=== PATIENT | female | born 1935 | race Caucasian/White ===

== ENCOUNTER 2022-05-12 12:44 | Outpatient (CLI) | payer MEDICARE | END 2022-05-12 12:45 | disposition home or self-care (01) | LOC: BICMAMMO 12:44 | PROVIDERS: ATTEND Family Medicine | DX: Z12.31 Encounter for screening mammogram for malignant neoplasm of breast (principal); Z80.3 Family history of malignant neoplasm of breast; Z91.89 Other specified personal risk factors, not elsewhere classified | CPT/HCPCS: 77063; 77067 ==

== ENCOUNTER 2022-10-25 14:09 | Inpatient (IN) | payer MEDICARE ==
[~2022-10-25 14:09] MED LIST: Iopamidol-370 76% 500 ML 1 ML ONE; Magnevist 469MG/ML 20 ML VIAL ONE
[2022-10-25] MEDS ORDERED: Ondansetron PF 4 MG/2 ML Vial IVP PRN (14:45)
[2022-10-25] MEDS ORDERED: Senokot S 8.6-50 MG TAB PO PRN (14:45)
[2022-10-25 14:46] VITALS: BMI 30.4
[2022-10-25] MEDS: HYDROcodone/Acetaminophen 5/325 mg Tablet PO PRN ×2 (15:11→19:50)
[2022-10-25] MEDS: Nicotine 21 MG PATCH TD SCH (15:11)
[2022-10-25 15:37] LABS: SARS-CoV-2 NAA Rapid Test Not Detected (NotDetected)
[2022-10-25 16:30] LABS: #Eosinphils 0.1 thou/uL (0.0-0.7); #Lymphocytes 1.3 thou/uL (1.20-3.40); #Neutrophils 9.6 thou/uL (1.40-6.50); %Basophils 0.3 % (0.0-1.0); %Eosinophils 0.9 % (0.0-10.0); %Lymphocytes 10.8 % (21.0-51.0); %Monocytes 8.5 % (0.0-10.0); %Neutrophils 79.5 % (42.0-75.0); Hemoglobin 10.4 g/dL (12.0-16.0); Mean Corpuscular HGB CONC 32.2 g/dL (32.0-36.0); Mean Corpuscular Hemoglobin 28.3 pg (27.0-31.0); Mean Corpuscular Volume 87.8 fl (78.0-98.0); Mean Platelet Volume 5.8 fL (7.4-10.4); Platelet Count 375 10x3/uL (130-400); Red Blood Cell (RBC) Count 3.68 mill/uL (4.20-5.40); White Blood Cell (WBC) Count 12.1 10x3/uL (4.8-10.8)
[2022-10-25 16:50] LABS: ALT (SGPT) Less than 7 U/L (8-55); AST (SGOT) 14 U/L (5-34); Albumin 3.3 g/dL (3.4-4.8); Alkaline Phosphatase 69 U/L (40-110); Anion Gap 12 mmol/L (10-20); BUN (Urea Nitrogen) 21 mg/dL (9.8-20.1); Bilirubin, Total 0.4 mg/dL (0.2-1.2); Calc. Creatinine Clearance 44 mL/min (70-130); Calcium 9.5 mg/dL (7.8-10.44); Carbon Dioxide 27 mmol/L (23-31); Chloride 96 mmol/L (98-107); Estimated GFR 48; Globulin 2.9 g/dL (2.4-3.5); Glucose 111 mg/dL (83-110); Protein, Total 6.2 g/dL (5.8-8.1); Sodium 131 mmol/L (136-145)
[2022-10-25] MEDS: Ketorolac Tromethamine 30 MG/ML VIAL IVP PRN (17:09)
[2022-10-25] MEDS: Rosuvastatin 5 MG TAB PO SCH (19:49)
[2022-10-26] MEDS: Levothyroxine Sodium 75 MCG TAB PO SCH (05:07)
[2022-10-26] MEDS: HYDROcodone/Acetaminophen 5/325 mg Tablet PO PRN ×3 (06:22→19:39)
[2022-10-26] MEDS ORDERED: oxyCODONE/Acetaminophen 5 mg/325 mg Tablet PO PRN (09:30)
[2022-10-26] MEDS: Escitalopram Oxalate 10 mg Tablet PO SCH (11:12)
[2022-10-26] MEDS: Losartan 25 MG TAB PO SCH (11:13)
[2022-10-26] MEDS ORDERED: CEFAZOLIN 2 GM in Sodium Chloride 0.9% 100 ML IVPB SCH (15:45)
[2022-10-26] MEDS: Ketorolac Tromethamine 30 MG/ML VIAL IVP PRN (18:02)
[2022-10-26] MEDS: Nicotine 21 MG PATCH TD SCH (18:04)
[2022-10-26] MEDS: Rosuvastatin 5 MG TAB PO SCH (19:39)
[2022-10-26] MEDS: Calcium Carbonate 600 MG + Vit D TAB PO SCH (19:39)
[2022-10-27] MEDS: HYDROcodone/Acetaminophen 5/325 mg Tablet PO PRN ×2 (05:00→16:15)
[2022-10-27] MEDS: Levothyroxine Sodium 75 MCG TAB PO SCH (05:00)
[2022-10-27 05:11] LABS: #Eosinphils 0.1 thou/uL (0.0-0.7); #Lymphocytes 1.4 thou/uL (1.20-3.40); #Monocytes 1.1 thou/uL (0.11-0.59); #Neutrophils 8.7 thou/uL (1.40-6.50); %Basophils 0.2 % (0.0-1.0); %Eosinophils 1.1 % (0.0-10.0); %Lymphocytes 12.4 % (21.0-51.0); %Monocytes 9.3 % (0.0-10.0); Hemoglobin 10.5 g/dL (12.0-16.0); Mean Corpuscular HGB CONC 32.4 g/dL (32.0-36.0); Mean Corpuscular Hemoglobin 28.4 pg (27.0-31.0); Mean Corpuscular Volume 87.6 fl (78.0-98.0); Mean Platelet Volume 5.9 fL (7.4-10.4); Platelet Count 350 10x3/uL (130-400); RBC Distribution Width 13.1 % (11.5-14.5); White Blood Cell (WBC) Count 11.3 10x3/uL (4.8-10.8)
[2022-10-27 05:29] LABS: Anion Gap 14 mmol/L (10-20); BUN (Urea Nitrogen) 26 mg/dL (9.8-20.1); Calc. Creatinine Clearance 41 mL/min (70-130); Carbon Dioxide 26 mmol/L (23-31); Chloride 93 mmol/L (98-107); Estimated GFR 45; Glucose 100 mg/dL (83-110); Potassium 4.5 mmol/L (3.5-5.1); Sodium 128 mmol/L (136-145)
[2022-10-27] MEDS ORDERED: Dexmedetomidine 200 MCG/2 ML VIAL ONE (08:45)
[2022-10-27] MEDS ORDERED: fentaNYL PF 100 MCG/2 ML SYRINGE ONE (08:45)
[2022-10-27] MEDS: Calcium Carbonate 600 MG + Vit D TAB PO SCH ×2 (08:50→21:09)
[2022-10-27] MEDS: Aspirin 81 mg Enteric Coated Tablet PO SCH (08:50)
[2022-10-27] MEDS: Multivit, Therapeutic 1 TAB PO SCH (08:50)
[2022-10-27] MEDS: Losartan 25 MG TAB PO SCH (08:50)
[2022-10-27] MEDS: Escitalopram Oxalate 10 mg Tablet PO SCH (08:50)
[2022-10-27] MEDS ORDERED: Bisoprolol Fumarate/HCTZ 5 mg/6.25 mg Tablet PO SCH (09:00)
[2022-10-27] MEDS ORDERED: Rocuronium Bromide 10 MG/ML (10ML VIAL) ONE (09:00)
[2022-10-27] MEDS ORDERED: Ondansetron PF 4 MG/2 ML Vial ONE (09:00)
[2022-10-27] MEDS ORDERED: ePHEDrine 50 MG/ML VIAL ONE (09:00)
[2022-10-27] MEDS ORDERED: PROPOFOL 200 MG/20 ML VIAL ONE (09:00)
[2022-10-27] MEDS ORDERED: Sodium Chloride 0.9% 100 ML ONE ×2 (09:04→15:04)
[2022-10-27] MEDS ORDERED: CEFAZOLIN 2 GM VIAL ONE (09:04)
[2022-10-27] MEDS ORDERED: SUGAMMADEX SODIUM 200 MG/2 ML VIAL ONE (10:54)
[2022-10-27] MEDS ORDERED: Rocuronium Bromide 50 MG/5 ML VIAL ONE (10:59)
[2022-10-27] MEDS ORDERED: Ondansetron HCl/PF 4 MG/2 ML Vial IVP PRN (11:20)
[2022-10-27] MEDS ORDERED: Promethazine HCl 25 MG/ML VIAL IM PRN (11:20)
[2022-10-27] MEDS ORDERED: Fentanyl 100 MCG/2 ML VIAL ONE ×2 (11:22→12:25)
[2022-10-27] MEDS ORDERED: Ipratropium/Albuterol 3 ML NEB ONE (12:58)
[2022-10-27] MEDS ORDERED: Albumin 5% 500 ML ONE (13:03)
[2022-10-27 13:39] LABS: Actual Bicarbonate (HCO3a) 22.8 mEq/L (22-28); CO2 Tension 38.9 mmHg (35.0-45.0); Calcium, Ionized (arterial) 1.23 mmol/L (1.12-1.30); Carboxyhemoglobin (COHb) 0.7 gm% (0.0-3.0); Hemoglobin (Hb) 10.8 g/dL (12.0-16.0); O2 Tension (PaO2), arterial 67.9 mmHg (> 60.0); Potassium - ABG Lab 4.11 mmol/L (3.70-5.30); pH, Arterial 7.39 (7.35-7.45)
[2022-10-27 14:26] LABS: Puncture Site RRA
[2022-10-27] MEDS ORDERED: Piperacillin/Tazobactam 3.375 GM in Sodium Chloride 0.9% 100 ML IVPB SCH ×2 (14:45→18:00)
[2022-10-27] MEDS ORDERED: Piperacillin/Tazobactam 3.375 GM VIAL ONE (15:04)
[2022-10-27] MEDS: Nicotine 21 MG PATCH TD SCH (16:16)
[2022-10-27 16:34] LABS: #Lymphocytes 0.4 thou/uL (1.20-3.40); #Monocytes 0.6 thou/uL (0.11-0.59); #Neutrophils 14.4 thou/uL (1.40-6.50); %Basophils 0.2 % (0.0-1.0); %Eosinophils 0.2 % (0.0-10.0); %Lymphocytes 2.3 % (21.0-51.0); %Monocytes 3.9 % (0.0-10.0); %Neutrophils 93.4 % (42.0-75.0); Hemoglobin 9.7 g/dL (12.0-16.0); Mean Corpuscular HGB CONC 32.4 g/dL (32.0-36.0); Mean Corpuscular Hemoglobin 28.3 pg (27.0-31.0); Mean Corpuscular Volume 87.6 fl (78.0-98.0); Mean Platelet Volume 6.1 fL (7.4-10.4); Platelet Count 321 10x3/uL (130-400); Red Blood Cell (RBC) Count 3.41 mill/uL (4.20-5.40); White Blood Cell (WBC) Count 15.4 10x3/uL (4.8-10.8)
[2022-10-27 16:54] LABS: ALT (SGPT) 12 U/L (8-55); AST (SGOT) 22 U/L (5-34); Albumin 3.4 g/dL (3.4-4.8); Alkaline Phosphatase 65 U/L (40-110); Anion Gap 16 mmol/L (10-20); BUN (Urea Nitrogen) 23 mg/dL (9.8-20.1); Bilirubin, Direct 0.3 mg/dL (0.1-0.3); Bilirubin, Total 0.5 mg/dL (0.2-1.2); Calc. Creatinine Clearance 38 mL/min (70-130); Calcium 9.6 mg/dL (7.8-10.44); Carbon Dioxide 23 mmol/L (23-31); Chloride 95 mmol/L (98-107); Estimated GFR 41; Glucose 138 mg/dL (83-110); Phosphorus 3.9 mg/dL (2.3-4.7); Potassium 4.4 mmol/L (3.5-5.1); Sodium 130 mmol/L (136-145)
[2022-10-27 16:55] LABS: Lactic Acid 3.2 mmol/L (0.5-2.2)
[2022-10-27] MEDS ORDERED: CEFAZOLIN 2 GM in Sodium Chloride 0.9% 100 ML IVPB SCH (17:00)
[2022-10-27] MEDS ORDERED: Morphine 2 MG/ML VIAL SLOW IVP PRN (18:16)
[2022-10-27] MEDS ORDERED: Polyethylene Glycol 3350 17 GM Packet PO PRN (18:17)
[2022-10-27] MEDS ORDERED: Lactated Ringer's 1,000 ML IV SCH (18:30)
[2022-10-27] MEDS ORDERED: Lactated Ringer's 500 ML IV SCH (18:30)
[2022-10-27 20:17] LABS: #Lymphocytes 0.4 thou/uL (1.20-3.40); #Monocytes 0.6 thou/uL (0.11-0.59); #Neutrophils 13.7 thou/uL (1.40-6.50); %Eosinophils 0.2 % (0.0-10.0); %Lymphocytes 2.9 % (21.0-51.0); %Monocytes 3.9 % (0.0-10.0); Hemoglobin 8.3 g/dL (12.0-16.0); Mean Corpuscular Hemoglobin 27.9 pg (27.0-31.0); Mean Corpuscular Volume 87.4 fl (78.0-98.0); Mean Platelet Volume 5.9 fL (7.4-10.4); Platelet Count 288 10x3/uL (130-400); Red Blood Cell (RBC) Count 2.98 mill/uL (4.20-5.40); White Blood Cell (WBC) Count 14.8 10x3/uL (4.8-10.8)
[2022-10-27 20:33] LABS: Lactic Acid 3.9 mmol/L (0.5-2.2)
[2022-10-27] MEDS: Piperacillin/Tazobactam 3.375 GM in Sodium Chloride 0.9% 100 ML IVPB SCH (20:49)
[2022-10-27] MEDS: Rosuvastatin 5 MG TAB PO SCH (21:11)
[2022-10-27] MEDS ORDERED: Vancomycin Dose by Levels Sliding Scale (Wt 71-99) FS SCH (22:45)
[2022-10-27] MEDS ORDERED: Albumin 25% 25 GM/100 ML BOT IVPB SCH (22:45)
[2022-10-27] MEDS: Lactated Ringer's 1,000 ML IV SCH (22:53)
[2022-10-27] MEDS ORDERED: Vancomycin 1.5 GRAM/300 ML BAG 1.5 GM in Premix Bag 1 BAG IVPB SCH (23:00)
[2022-10-28 01:02] LABS: Lactic Acid 2.2 mmol/L (0.5-2.2)
[2022-10-28] MEDS: Piperacillin/Tazobactam 3.375 GM in Sodium Chloride 0.9% 100 ML IVPB SCH ×3 (03:59→21:25)
[2022-10-28 04:05] LABS: #Eosinphils 0.1 thou/uL (0.0-0.7); #Lymphocytes 0.7 thou/uL (1.20-3.40); #Monocytes 0.4 thou/uL (0.11-0.59); #Neutrophils 8.2 thou/uL (1.40-6.50); %Basophils 0.1 % (0.0-1.0); %Eosinophils 0.5 % (0.0-10.0); %Lymphocytes 7.8 % (21.0-51.0); %Monocytes 4.6 % (0.0-10.0); Hemoglobin 7.5 g/dL (12.0-16.0); Mean Corpuscular HGB CONC 33.5 g/dL (32.0-36.0); Mean Corpuscular Volume 86.6 fl (78.0-98.0); Mean Platelet Volume 6.1 fL (7.4-10.4); Platelet Count 261 10x3/uL (130-400); Red Blood Cell (RBC) Count 2.56 mill/uL (4.20-5.40); White Blood Cell (WBC) Count 9.4 10x3/uL (4.8-10.8)
[2022-10-28 04:26] LABS: Anion Gap 15 mmol/L (10-20); BUN (Urea Nitrogen) 35 mg/dL (9.8-20.1); Calc. Creatinine Clearance 27 mL/min (70-130); Calcium 9.1 mg/dL (7.8-10.44); Carbon Dioxide 21 mmol/L (23-31); Chloride 95 mmol/L (98-107); Estimated GFR 27; Glucose 134 mg/dL (83-110); Potassium 4.4 mmol/L (3.5-5.1); Sodium 127 mmol/L (136-145)
[2022-10-28] MEDS: Levothyroxine Sodium 75 MCG TAB PO SCH (05:43)
[2022-10-28] MEDS: Multivit, Therapeutic 1 TAB PO SCH (08:42)
[2022-10-28] MEDS: Aspirin 81 mg Enteric Coated Tablet PO SCH (08:42)
[2022-10-28] MEDS: Calcium Carbonate 600 MG + Vit D TAB PO SCH ×2 (08:42→21:25)
[2022-10-28] MEDS: Escitalopram Oxalate 10 mg Tablet PO SCH (08:42)
[2022-10-28] MEDS: Polyethylene Glycol 3350 17 GM Packet PO SCH (11:51)
[2022-10-28] MEDS: Lactated Ringer's 1,000 ML IV SCH (12:40)
[2022-10-28] MEDS: HYDROcodone/Acetaminophen 5/325 mg Tablet PO PRN (12:42)
[2022-10-28] MEDS: Nicotine 21 MG PATCH TD SCH (17:15)
[2022-10-28] MEDS: Rosuvastatin 5 MG TAB PO SCH (21:55)
[2022-10-28 22:58] LABS: Vancomycin, Random 14.8 ug/mL (See Comment)
[2022-10-28] MEDS ORDERED: Vancomycin HCl 750 MG in Sodium Chloride 0.9% 250 ML 250 ML IVPB SCH (23:59)
[2022-10-29] MEDS: Lactated Ringer's 1,000 ML IV SCH ×3 (00:41→14:06)
[2022-10-29 03:21] LABS: #Eosinphils 0.2 thou/uL (0.0-0.7); #Lymphocytes 0.8 thou/uL (1.20-3.40); #Monocytes 0.7 thou/uL (0.11-0.59); #Neutrophils 9.7 thou/uL (1.40-6.50); %Basophils 0.2 % (0.0-1.0); %Eosinophils 1.3 % (0.0-10.0); %Lymphocytes 7.2 % (21.0-51.0); %Monocytes 6.4 % (0.0-10.0); %Neutrophils 84.9 % (42.0-75.0); Hemoglobin 8.6 g/dL (12.0-16.0); Mean Corpuscular HGB CONC 33.2 g/dL (32.0-36.0); Mean Corpuscular Hemoglobin 28.5 pg (27.0-31.0); Mean Platelet Volume 6.4 fL (7.4-10.4); Platelet Count 245 10x3/uL (130-400); RBC Distribution Width 12.9 % (11.5-14.5); White Blood Cell (WBC) Count 11.4 10x3/uL (4.8-10.8)
[2022-10-29 03:46] LABS: Anion Gap 14 mmol/L (10-20); BUN (Urea Nitrogen) 43 mg/dL (9.8-20.1); Calc. Creatinine Clearance 26 mL/min (70-130); Calcium 9.3 mg/dL (7.8-10.44); Carbon Dioxide 22 mmol/L (23-31); Chloride 95 mmol/L (98-107); Estimated GFR 26; Glucose 109 mg/dL (83-110); Sodium 127 mmol/L (136-145)
[2022-10-29] MEDS: Piperacillin/Tazobactam 3.375 GM in Sodium Chloride 0.9% 100 ML IVPB SCH ×3 (04:41→20:37)
[2022-10-29] MEDS: Levothyroxine Sodium 75 MCG TAB PO SCH (05:03)
[2022-10-29] MEDS: Calcium Carbonate 600 MG + Vit D TAB PO SCH ×2 (09:04→20:38)
[2022-10-29] MEDS: Multivit, Therapeutic 1 TAB PO SCH (09:04)
[2022-10-29] MEDS: Escitalopram Oxalate 10 mg Tablet PO SCH (09:04)
[2022-10-29] MEDS: Aspirin 81 mg Enteric Coated Tablet PO SCH (09:04)
[2022-10-29] MEDS: Polyethylene Glycol 3350 17 GM Packet PO SCH (09:05)
[2022-10-29] MEDS ORDERED: Ipratropium/Albuterol 3 ML NEB EZPAP PRN (10:56)
[2022-10-29] MEDS: Nicotine 21 MG PATCH TD SCH (14:25)
[2022-10-29] MEDS: Rosuvastatin 5 MG TAB PO SCH (20:38)
[2022-10-29] MEDS: HYDROcodone/Acetaminophen 5/325 mg Tablet PO PRN (20:39)
[2022-10-30 00:12] LABS: Vancomycin, Random 16.7 ug/mL (See Comment)
[2022-10-30] MEDS ORDERED: Vancomycin HCl 500 MG in Sodium Chloride 0.9% 100 ML IVPB SCH (02:00)
[2022-10-30] MEDS: Lactated Ringer's 1,000 ML IV SCH ×2 (02:26→12:00)
[2022-10-30] MEDS: Piperacillin/Tazobactam 3.375 GM in Sodium Chloride 0.9% 100 ML IVPB SCH ×3 (04:03→21:14)
[2022-10-30] MEDS: Levothyroxine Sodium 75 MCG TAB PO SCH (05:36)
[2022-10-30 05:55] LABS: #Eosinphils 0.2 thou/uL (0.0-0.7); #Monocytes 0.8 thou/uL (0.11-0.59); #Neutrophils 8.4 thou/uL (1.40-6.50); %Basophils 0.3 % (0.0-1.0); %Eosinophils 2.4 % (0.0-10.0); %Lymphocytes 9.8 % (21.0-51.0); %Monocytes 7.3 % (0.0-10.0); %Neutrophils 80.3 % (42.0-75.0); Hemoglobin 7.9 g/dL (12.0-16.0); Mean Corpuscular HGB CONC 33.6 g/dL (32.0-36.0); Mean Corpuscular Hemoglobin 29.5 pg (27.0-31.0); Mean Platelet Volume 6.5 fL (7.4-10.4); Platelet Count 255 10x3/uL (130-400); RBC Distribution Width 13.2 % (11.5-14.5); Red Blood Cell (RBC) Count 2.69 mill/uL (4.20-5.40); White Blood Cell (WBC) Count 10.5 10x3/uL (4.8-10.8)
[2022-10-30 06:22] LABS: Anion Gap 11 mmol/L (10-20); BUN (Urea Nitrogen) 41 mg/dL (9.8-20.1); Calc. Creatinine Clearance 32 mL/min (70-130); Calcium 8.9 mg/dL (7.8-10.44); Carbon Dioxide 23 mmol/L (23-31); Chloride 96 mmol/L (98-107); Estimated GFR 34; Glucose 103 mg/dL (83-110); Potassium 4.2 mmol/L (3.5-5.1); Sodium 126 mmol/L (136-145)
[2022-10-30] MEDS: Losartan 25 MG TAB PO SCH (09:35)
[2022-10-30] MEDS: Escitalopram Oxalate 10 mg Tablet PO SCH (09:36)
[2022-10-30] MEDS: Calcium Carbonate 600 MG + Vit D TAB PO SCH ×2 (09:36→21:14)
[2022-10-30] MEDS: Aspirin 81 mg Enteric Coated Tablet PO SCH (09:36)
[2022-10-30] MEDS: Polyethylene Glycol 3350 17 GM Packet PO SCH (09:36)
[2022-10-30] MEDS: Multivit, Therapeutic 1 TAB PO SCH (09:36)
[2022-10-30] MEDS: Nicotine 21 MG PATCH TD SCH (15:49)
[2022-10-30] MEDS: HYDROcodone/Acetaminophen 5/325 mg Tablet PO PRN (18:05)
[2022-10-30] MEDS: Rosuvastatin 5 MG TAB PO SCH (21:14)
[2022-10-31 01:32] LABS: Vancomycin, Random 14.6 ug/mL (See Comment)
[2022-10-31] MEDS ORDERED: Vancomycin HCl 750 MG in Sodium Chloride 0.9% 250 ML 250 ML IVPB SCH (02:15)
[2022-10-31] MEDS: Piperacillin/Tazobactam 3.375 GM in Sodium Chloride 0.9% 100 ML IVPB SCH ×2 (05:18→11:40)
[2022-10-31] MEDS: Levothyroxine Sodium 75 MCG TAB PO SCH (05:18)
[2022-10-31 06:08] LABS: #Basophils 0.1 thou/uL (0.0-0.2); #Eosinphils 0.3 thou/uL (0.0-0.7); #Lymphocytes 1.3 thou/uL (1.20-3.40); #Monocytes 0.8 thou/uL (0.11-0.59); #Neutrophils 7.9 thou/uL (1.40-6.50); %Basophils 0.6 % (0.0-1.0); %Eosinophils 2.8 % (0.0-10.0); %Lymphocytes 12.7 % (21.0-51.0); %Monocytes 7.7 % (0.0-10.0); %Neutrophils 76.2 % (42.0-75.0); Hemoglobin 8.3 g/dL (12.0-16.0); Mean Corpuscular HGB CONC 32.3 g/dL (32.0-36.0); Mean Corpuscular Hemoglobin 29.2 pg (27.0-31.0); Mean Corpuscular Volume 90.3 fl (78.0-98.0); Mean Platelet Volume 6.5 fL (7.4-10.4); Platelet Count 297 10x3/uL (130-400); RBC Distribution Width 13.7 % (11.5-14.5); Red Blood Cell (RBC) Count 2.83 mill/uL (4.20-5.40); White Blood Cell (WBC) Count 10.3 10x3/uL (4.8-10.8)
[2022-10-31 06:28] LABS: Anion Gap 15 mmol/L (10-20); BUN (Urea Nitrogen) 41 mg/dL (9.8-20.1); Calc. Creatinine Clearance 36 mL/min (70-130); Calcium 9.4 mg/dL (7.8-10.44); Carbon Dioxide 20 mmol/L (23-31); Chloride 100 mmol/L (98-107); Estimated GFR 38; Glucose 92 mg/dL (83-110); Potassium 4.2 mmol/L (3.5-5.1); Sodium 131 mmol/L (136-145)
[2022-10-31] MEDS: Multivit, Therapeutic 1 TAB PO SCH (09:08)
[2022-10-31] MEDS: Polyethylene Glycol 3350 17 GM Packet PO SCH (09:08)
[2022-10-31] MEDS: Calcium Carbonate 600 MG + Vit D TAB PO SCH ×2 (09:08→19:23)
[2022-10-31] MEDS: Escitalopram Oxalate 10 mg Tablet PO SCH (09:08)
[2022-10-31] MEDS: Aspirin 81 mg Enteric Coated Tablet PO SCH (09:08)
[2022-10-31] MEDS: Losartan 25 MG TAB PO SCH (09:09)
[2022-10-31] MEDS: HYDROcodone/Acetaminophen 5/325 mg Tablet PO PRN (11:40)
[2022-10-31] MEDS: Nicotine 21 MG PATCH TD SCH (15:48)
[2022-10-31] MEDS: Rosuvastatin 5 MG TAB PO SCH (19:22)
[2022-11-01] MEDS: Levothyroxine Sodium 75 MCG TAB PO SCH (05:28)
[2022-11-01 07:34] LABS: Vancomycin, Random 13.5 ug/mL (See Comment)
[2022-11-01] MEDS: Losartan 25 MG TAB PO SCH (09:23)
[2022-11-01] MEDS: Polyethylene Glycol 3350 17 GM Packet PO SCH (09:24)
[2022-11-01] MEDS: Calcium Carbonate 600 MG + Vit D TAB PO SCH ×2 (09:24→21:14)
[2022-11-01] MEDS: Multivit, Therapeutic 1 TAB PO SCH (09:24)
[2022-11-01] MEDS: Aspirin 81 mg Enteric Coated Tablet PO SCH (09:24)
[2022-11-01] MEDS: Vancomycin 1 GM in Premix Bag 1 BAG IVPB SCH (09:25)
[2022-11-01] MEDS: Escitalopram Oxalate 10 mg Tablet PO SCH (09:38)
[2022-11-01] MEDS: Nicotine 21 MG PATCH TD SCH (16:06)
[2022-11-01] MEDS: Rosuvastatin 5 MG TAB PO SCH (21:14)
[2022-11-02] MEDS: Levothyroxine Sodium 75 MCG TAB PO SCH (06:17)
[2022-11-02 06:52] LABS: #Eosinphils 0.4 thou/uL (0.0-0.7); #Lymphocytes 1.1 thou/uL (1.20-3.40); #Monocytes 0.7 thou/uL (0.11-0.59); #Neutrophils 7.4 thou/uL (1.40-6.50); %Basophils 0.4 % (0.0-1.0); %Lymphocytes 11.6 % (21.0-51.0); %Monocytes 6.9 % (0.0-10.0); %Neutrophils 77.2 % (42.0-75.0); Hemoglobin 8.2 g/dL (12.0-16.0); Mean Corpuscular HGB CONC 33.1 g/dL (32.0-36.0); Mean Corpuscular Hemoglobin 29.1 pg (27.0-31.0); Mean Corpuscular Volume 87.9 fl (78.0-98.0); Mean Platelet Volume 6.2 fL (7.4-10.4); Platelet Count 329 10x3/uL (130-400); RBC Distribution Width 14.1 % (11.5-14.5); White Blood Cell (WBC) Count 9.6 10x3/uL (4.8-10.8)
[2022-11-02 07:10] LABS: Anion Gap 12 mmol/L (10-20); BUN (Urea Nitrogen) 31 mg/dL (9.8-20.1); Calc. Creatinine Clearance 42 mL/min (70-130); Calcium 9.8 mg/dL (7.8-10.44); Carbon Dioxide 24 mmol/L (23-31); Chloride 102 mmol/L (98-107); Estimated GFR 46; Glucose 93 mg/dL (83-110); Potassium 3.8 mmol/L (3.5-5.1); Sodium 134 mmol/L (136-145)
[2022-11-02] MEDS: Losartan 25 MG TAB PO SCH (08:39)
[2022-11-02] MEDS: Escitalopram Oxalate 10 mg Tablet PO SCH (08:39)
[2022-11-02] MEDS: Vancomycin 1 GM in Premix Bag 1 BAG IVPB SCH (08:39)
[2022-11-02] MEDS: Calcium Carbonate 600 MG + Vit D TAB PO SCH ×2 (08:39→21:23)
[2022-11-02] MEDS: Aspirin 81 mg Enteric Coated Tablet PO SCH (08:40)
[2022-11-02] MEDS: Multivit, Therapeutic 1 TAB PO SCH (08:40)
[2022-11-02] MEDS: Nicotine 21 MG PATCH TD SCH (17:41)
[2022-11-02] MEDS: Rosuvastatin 5 MG TAB PO SCH (21:23)
[2022-11-02] MEDS ORDERED: cloNIDine 0.1 MG TAB PO SCH (21:45)
[2022-11-02] MEDS: HYDROcodone/Acetaminophen 5/325 mg Tablet PO PRN (22:38)
[2022-11-03] MEDS: Levothyroxine Sodium 75 MCG TAB PO SCH (05:54)
[2022-11-03 08:13] LABS: Vancomycin, Trough 14.5 ug/mL
[2022-11-03] MEDS: Calcium Carbonate 600 MG + Vit D TAB PO SCH ×2 (08:16→20:34)
[2022-11-03] MEDS: Multivit, Therapeutic 1 TAB PO SCH (08:16)
[2022-11-03] MEDS: Escitalopram Oxalate 10 mg Tablet PO SCH (08:17)
[2022-11-03] MEDS: Aspirin 81 mg Enteric Coated Tablet PO SCH (08:17)
[2022-11-03] MEDS: Losartan 25 MG TAB PO SCH (08:17)
[2022-11-03] MEDS: Vancomycin 1 GM in Premix Bag 1 BAG IVPB SCH (08:17)
[2022-11-03] MEDS: HYDROcodone/Acetaminophen 5/325 mg Tablet PO PRN (15:32)
[2022-11-03] MEDS: Nicotine 21 MG PATCH TD SCH (15:35)
[2022-11-03] MEDS: Rosuvastatin 5 MG TAB PO SCH (20:34)
[2022-11-04 06:09] LABS: Hemoglobin 8.1 g/dL (12.0-16.0); Mean Corpuscular HGB CONC 33.2 g/dL (32.0-36.0); Mean Corpuscular Hemoglobin 29.5 pg (27.0-31.0); Mean Corpuscular Volume 88.9 fl (78.0-98.0); Mean Platelet Volume 5.9 fL (7.4-10.4); Platelet Count 384 10x3/uL (130-400); RBC Distribution Width 14.8 % (11.5-14.5); Red Blood Cell (RBC) Count 2.74 mill/uL (4.20-5.40); White Blood Cell (WBC) Count 10.6 10x3/uL (4.8-10.8)
[2022-11-04 06:25] LABS: Anion Gap 12 mmol/L (10-20); BUN (Urea Nitrogen) 27 mg/dL (9.8-20.1); Calc. Creatinine Clearance 50 mL/min (70-130); Carbon Dioxide 25 mmol/L (23-31); Chloride 100 mmol/L (98-107); Estimated GFR 58; Glucose 96 mg/dL (83-110); Potassium 3.9 mmol/L (3.5-5.1); Sodium 133 mmol/L (136-145)
[2022-11-04 06:31] LABS: Band 4 % (5-11); Eosinophils 1 % (0-10); Hypochromia SLIGHT = 6-15 cells (100X) (0-5/hpf); MDiff Complete? YES; Monocytes 4 % (0-10); Neutrophil 91 % (42-75); Platelet Morphology Comment Appears Adequate
[2022-11-04] MEDS: Levothyroxine Sodium 75 MCG TAB PO SCH (06:39)
[2022-11-04] MEDS: Vancomycin 1 GM in Premix Bag 1 BAG IVPB SCH (08:06)
[2022-11-04] MEDS: Aspirin 81 mg Enteric Coated Tablet PO SCH (08:07)
[2022-11-04] MEDS: Multivit, Therapeutic 1 TAB PO SCH (08:07)
[2022-11-04] MEDS: Losartan 25 MG TAB PO SCH (08:07)
[2022-11-04] MEDS: Calcium Carbonate 600 MG + Vit D TAB PO SCH ×2 (08:07→20:50)
[2022-11-04] MEDS: Escitalopram Oxalate 10 mg Tablet PO SCH (08:07)
[2022-11-04] MEDS: HYDROcodone/Acetaminophen 5/325 mg Tablet PO PRN ×2 (08:09→17:15)
[2022-11-04 12:18] LABS: HBSAB Concentration Less than 8.00 mIU/mL; HBSAg Index 0.26 S/CO (0-0.99); Hep B Core Total Ab Non-Reactive (NonReactive); Hep B Core Total Index 0.04 S/CO (0-0.79); Hep B Surf AB Non-Reactive (NonReactive); Hep B Surf Ag Non-Reactive S/CO (NonReactive); Hep C IgG Ab Non-Reactive (NonReactive); Hep C Index 0.06 S/CO (0-0.79)
[2022-11-04] MEDS ORDERED: Allopurinol 300 MG TAB PO SCH (13:15)
[2022-11-04] MEDS: Nicotine 21 MG PATCH TD SCH (13:55)
[2022-11-04] MEDS: Sodium Chloride 0.9% 1,000 ML IV SCH (13:59)
[2022-11-04] MEDS: Rosuvastatin 5 MG TAB PO SCH (20:49)
[2022-11-04] MEDS ORDERED: Losartan 25 MG TAB PO SCH (21:00)
[2022-11-05] MEDS: Sodium Chloride 0.9% 1,000 ML IV SCH ×2 (03:00→13:45)
[2022-11-05] MEDS: Levothyroxine Sodium 75 MCG TAB PO SCH (05:27)
[2022-11-05] MEDS: Calcium Carbonate 600 MG + Vit D TAB PO SCH ×2 (08:46→21:11)
[2022-11-05] MEDS: Aspirin 81 mg Enteric Coated Tablet PO SCH (08:47)
[2022-11-05] MEDS: Multivit, Therapeutic 1 TAB PO SCH (08:47)
[2022-11-05] MEDS: Allopurinol 300 MG TAB PO SCH (08:47)
[2022-11-05] MEDS: Losartan 25 MG TAB PO SCH (08:47)
[2022-11-05] MEDS: Escitalopram Oxalate 10 mg Tablet PO SCH ×2 (08:48→21:10)
[2022-11-05] MEDS ORDERED: oxyCODONE/Acetaminophen 5 mg/325 mg Tablet PO PRN (09:57)
[2022-11-05] MEDS: Nicotine 21 MG PATCH TD SCH (13:40)
[2022-11-05] MEDS: Rosuvastatin 5 MG TAB PO SCH (21:10)
[2022-11-06] MEDS: HYDROcodone/Acetaminophen 5/325 mg Tablet PO PRN ×3 (00:13→20:33)
[2022-11-06] MEDS: Sodium Chloride 0.9% 1,000 ML IV SCH ×2 (04:30→17:38)
[2022-11-06 05:52] LABS: #Eosinphils 0.3 thou/uL (0.0-0.7); #Lymphocytes 1.1 thou/uL (1.20-3.40); #Monocytes 0.8 thou/uL (0.11-0.59); #Neutrophils 6.4 thou/uL (1.40-6.50); %Basophils 0.4 % (0.0-1.0); %Eosinophils 3.3 % (0.0-10.0); %Lymphocytes 12.4 % (21.0-51.0); %Monocytes 8.9 % (0.0-10.0); %Neutrophils 75.1 % (42.0-75.0); Hemoglobin 7.7 g/dL (12.0-16.0); Mean Corpuscular HGB CONC 33.2 g/dL (32.0-36.0); Mean Corpuscular Hemoglobin 29.8 pg (27.0-31.0); Mean Corpuscular Volume 89.7 fl (78.0-98.0); Mean Platelet Volume 5.8 fL (7.4-10.4); Platelet Count 360 10x3/uL (130-400); RBC Distribution Width 15.1 % (11.5-14.5); Red Blood Cell (RBC) Count 2.59 mill/uL (4.20-5.40); White Blood Cell (WBC) Count 8.5 10x3/uL (4.8-10.8)
[2022-11-06] MEDS: Levothyroxine Sodium 75 MCG TAB PO SCH (06:05)
[2022-11-06 06:10] LABS: Anion Gap 12 mmol/L (10-20); BUN (Urea Nitrogen) 26 mg/dL (9.8-20.1); Calc. Creatinine Clearance 50 mL/min (70-130); Calcium 9.3 mg/dL (7.8-10.44); Carbon Dioxide 24 mmol/L (23-31); Chloride 101 mmol/L (98-107); Estimated GFR 58; Glucose 93 mg/dL (83-110); Magnesium 1.7 mg/dL (1.6-2.6); Potassium 3.7 mmol/L (3.5-5.1); Sodium 133 mmol/L (136-145); Uric Acid 5.9 mg/dL (2.6-6.0)
[2022-11-06] MEDS: Losartan 25 MG TAB PO SCH (09:26)
[2022-11-06] MEDS: Aspirin 81 mg Enteric Coated Tablet PO SCH (09:28)
[2022-11-06] MEDS: Multivit, Therapeutic 1 TAB PO SCH (09:28)
[2022-11-06] MEDS: Calcium Carbonate 600 MG + Vit D TAB PO SCH ×2 (09:28→20:33)
[2022-11-06] MEDS: Allopurinol 300 MG TAB PO SCH (09:29)
[2022-11-06] MEDS: Nicotine 21 MG PATCH TD SCH (15:28)
[2022-11-06] MEDS: Docusate 100 MG CAP PO PRN (20:33)
[2022-11-06] MEDS: Escitalopram Oxalate 10 mg Tablet PO SCH (20:33)
[2022-11-06] MEDS: Rosuvastatin 5 MG TAB PO SCH (20:33)
[2022-11-07] MEDS: Levothyroxine Sodium 75 MCG TAB PO SCH (04:57)
[2022-11-07 06:38] LABS: #Eosinphils 0.2 thou/uL (0.0-0.7); #Monocytes 0.6 thou/uL (0.11-0.59); #Neutrophils 6.8 thou/uL (1.40-6.50); %Basophils 0.3 % (0.0-1.0); %Eosinophils 2.6 % (0.0-10.0); %Lymphocytes 11.1 % (21.0-51.0); %Monocytes 7.4 % (0.0-10.0); %Neutrophils 78.6 % (42.0-75.0); Hemoglobin 8.2 g/dL (12.0-16.0); Mean Corpuscular HGB CONC 32.8 g/dL (32.0-36.0); Mean Corpuscular Hemoglobin 29.4 pg (27.0-31.0); Mean Corpuscular Volume 89.8 fl (78.0-98.0); Mean Platelet Volume 6.1 fL (7.4-10.4); Platelet Count 336 10x3/uL (130-400); RBC Distribution Width 15.1 % (11.5-14.5); White Blood Cell (WBC) Count 8.6 10x3/uL (4.8-10.8)
[2022-11-07 07:01] LABS: ALT (SGPT) 18 U/L (8-55); AST (SGOT) 21 U/L (5-34); Albumin 2.4 g/dL (3.4-4.8); Alkaline Phosphatase 75 U/L (40-110); Anion Gap 10 mmol/L (10-20); BUN (Urea Nitrogen) 24 mg/dL (9.8-20.1); Bilirubin, Total 0.4 mg/dL (0.2-1.2); Calc. Creatinine Clearance 54 mL/min (70-130); Calcium 9.5 mg/dL (7.8-10.44); Carbon Dioxide 26 mmol/L (23-31); Chloride 102 mmol/L (98-107); Estimated GFR 63; Globulin 2.4 g/dL (2.4-3.5); Glucose 93 mg/dL (83-110); Potassium 3.9 mmol/L (3.5-5.1); Protein, Total 4.8 g/dL (5.8-8.1); Sodium 134 mmol/L (136-145); Uric Acid 5.1 mg/dL (2.6-6.0)
[2022-11-07] MEDS: HYDROcodone/Acetaminophen 5/325 mg Tablet PO PRN ×2 (09:21→20:39)
[2022-11-07] MEDS: Multivit, Therapeutic 1 TAB PO SCH (09:22)
[2022-11-07] MEDS: Losartan 25 MG TAB PO SCH (09:22)
[2022-11-07] MEDS: Calcium Carbonate 600 MG + Vit D TAB PO SCH ×2 (09:22→20:39)
[2022-11-07] MEDS: Aspirin 81 mg Enteric Coated Tablet PO SCH (09:22)
[2022-11-07] MEDS: Allopurinol 300 MG TAB PO SCH (09:22)
[2022-11-07] MEDS: Sodium Chloride 0.9% 1,000 ML IV SCH ×2 (11:47→19:01)
[2022-11-07] MEDS: Nicotine 21 MG PATCH TD SCH (14:49)
[2022-11-07] MEDS: Rosuvastatin 5 MG TAB PO SCH (20:39)
[2022-11-07] MEDS: Escitalopram Oxalate 10 mg Tablet PO SCH (20:39)
[2022-11-07] MEDS: Docusate 100 MG CAP PO PRN (20:44)
[2022-11-08] MEDS: HYDROcodone/Acetaminophen 5/325 mg Tablet PO PRN (05:11)
[2022-11-08] MEDS: Levothyroxine Sodium 75 MCG TAB PO SCH (05:11)
[2022-11-08 06:39] LABS: #Basophils 0.1 thou/uL (0.0-0.2); #Eosinphils 0.2 thou/uL (0.0-0.7); #Monocytes 0.6 thou/uL (0.11-0.59); #Neutrophils 7.4 thou/uL (1.40-6.50); %Basophils 0.5 % (0.0-1.0); %Eosinophils 1.7 % (0.0-10.0); %Monocytes 6.7 % (0.0-10.0); %Neutrophils 80.1 % (42.0-75.0); Hemoglobin 7.6 g/dL (12.0-16.0); Mean Corpuscular HGB CONC 32.8 g/dL (32.0-36.0); Mean Corpuscular Hemoglobin 29.4 pg (27.0-31.0); Mean Corpuscular Volume 89.7 fl (78.0-98.0); Mean Platelet Volume 6.5 fL (7.4-10.4); Platelet Count 297 10x3/uL (130-400); RBC Distribution Width 15.2 % (11.5-14.5); Red Blood Cell (RBC) Count 2.59 mill/uL (4.20-5.40); White Blood Cell (WBC) Count 9.2 10x3/uL (4.8-10.8)
[2022-11-08] MEDS: Multivit, Therapeutic 1 TAB PO SCH (09:06)
[2022-11-08] MEDS: Allopurinol 300 MG TAB PO SCH (09:06)
[2022-11-08] MEDS: Calcium Carbonate 600 MG + Vit D TAB PO SCH ×2 (09:07→19:58)
[2022-11-08] MEDS: Sodium Chloride 0.9% 1,000 ML IV SCH ×2 (09:07→19:58)
[2022-11-08] MEDS: Aspirin 81 mg Enteric Coated Tablet PO SCH (09:07)
[2022-11-08] MEDS: Losartan 25 MG TAB PO SCH (09:07)
[2022-11-08] MEDS ORDERED: Bupivacaine/Epinephrine 0.25% 30 ML VIAL ONE (11:00)
[2022-11-08] MEDS ORDERED: Lidocaine 2% PF 5 ML VIAL ONE (11:00)
[2022-11-08] MEDS ORDERED: fentaNYL PF 100 MCG/2 ML SYRINGE ONE (11:15)
[2022-11-08] MEDS ORDERED: PROPOFOL 40 ML ONE (11:15)
[2022-11-08] MEDS ORDERED: Promethazine HCl 25 MG/ML VIAL IM PRN (12:46)
[2022-11-08] MEDS ORDERED: Ondansetron HCl/PF 4 MG/2 ML Vial IVP PRN (12:46)
[2022-11-08] MEDS: Nicotine 21 MG PATCH TD SCH (14:27)
[2022-11-08] MEDS: Rosuvastatin 5 MG TAB PO SCH (19:58)
[2022-11-08] MEDS: Escitalopram Oxalate 10 mg Tablet PO SCH (19:58)
[2022-11-09] MEDS: Levothyroxine Sodium 75 MCG TAB PO SCH (04:52)
[2022-11-09] MEDS ORDERED: SODIUM CHLORIDE 0.9% IVPB SCH ×5 (06:00→08:00)
[2022-11-09] MEDS ORDERED: Dexamethasone 10 MG in Sodium Chloride 0.9% 50 ML IVPB SCH (06:00)
[2022-11-09] MEDS ORDERED: CYCLOPHOSPHAMIDE IVPB SCH ×2 (06:00→08:00)
[2022-11-09] MEDS ORDERED: RITUXIMAB ABBS IVPB SCH (06:00)
[2022-11-09] MEDS ORDERED: diphenhydrAMINE 50 MG in Sodium Chloride 0.9% 50 ML IVPB SCH (06:00)
[2022-11-09] MEDS ORDERED: DOXORUBICIN IVPB SCH (06:00)
[2022-11-09] MEDS ORDERED: VINCRISTINE SULFATE IVPB SCH (06:00)
[2022-11-09] MEDS ORDERED: PALONOSETRON HCL 0.05 MG/ML 5 ML VIAL IVP SCH (06:00)
[2022-11-09] MEDS ORDERED: Acetaminophen 500 MG TAB PO SCH (06:00)
[2022-11-09 06:18] LABS: #Eosinphils 0.1 thou/uL (0.0-0.7); #Monocytes 0.7 thou/uL (0.11-0.59); #Neutrophils 7.1 thou/uL (1.40-6.50); %Basophils 0.4 % (0.0-1.0); %Eosinophils 1.2 % (0.0-10.0); %Lymphocytes 10.7 % (21.0-51.0); %Monocytes 7.6 % (0.0-10.0); %Neutrophils 80.2 % (42.0-75.0); Hemoglobin 7.8 g/dL (12.0-16.0); Mean Corpuscular HGB CONC 32.9 g/dL (32.0-36.0); Mean Corpuscular Hemoglobin 29.6 pg (27.0-31.0); Mean Corpuscular Volume 89.9 fl (78.0-98.0); Mean Platelet Volume 5.8 fL (7.4-10.4); Platelet Count 317 10x3/uL (130-400); RBC Distribution Width 15.1 % (11.5-14.5); Red Blood Cell (RBC) Count 2.64 mill/uL (4.20-5.40); White Blood Cell (WBC) Count 8.9 10x3/uL (4.8-10.8)
[2022-11-09] MEDS: Losartan 25 MG TAB PO SCH (08:51)
[2022-11-09] MEDS: Aspirin 81 mg Enteric Coated Tablet PO SCH (08:51)
[2022-11-09] MEDS: Allopurinol 300 MG TAB PO SCH (08:51)
[2022-11-09] MEDS: Multivit, Therapeutic 1 TAB PO SCH (08:53)
[2022-11-09] MEDS: HYDROcodone/Acetaminophen 5/325 mg Tablet PO PRN (08:53)
[2022-11-09] MEDS: Calcium Carbonate 600 MG + Vit D TAB PO SCH ×2 (08:54→22:12)
[2022-11-09] MEDS: Sodium Chloride 0.9% 1,000 ML IV SCH (09:30)
[2022-11-09] MEDS: Nicotine 21 MG PATCH TD SCH (14:58)
[2022-11-09] MEDS: Rosuvastatin 5 MG TAB PO SCH (22:12)
[2022-11-09] MEDS: Escitalopram Oxalate 10 mg Tablet PO SCH (22:12)
[2022-11-10] MEDS: Sodium Chloride 0.9% 1,000 ML IV SCH (04:09)
[2022-11-10] MEDS: Levothyroxine Sodium 75 MCG TAB PO SCH (06:03)
[2022-11-10 07:08] LABS: #Lymphocytes 0.5 thou/uL (1.20-3.40); #Monocytes 0.5 thou/uL (0.11-0.59); #Neutrophils 8.3 thou/uL (1.40-6.50); %Basophils 0.2 % (0.0-1.0); %Eosinophils 0.2 % (0.0-10.0); %Lymphocytes 5.4 % (21.0-51.0); %Monocytes 5.1 % (0.0-10.0); %Neutrophils 89.2 % (42.0-75.0); Hemoglobin 8.7 g/dL (12.0-16.0); Mean Corpuscular HGB CONC 32.6 g/dL (32.0-36.0); Mean Corpuscular Hemoglobin 28.9 pg (27.0-31.0); Mean Corpuscular Volume 88.7 fl (78.0-98.0); Mean Platelet Volume 6.3 fL (7.4-10.4); Platelet Count 228 10x3/uL (130-400); RBC Distribution Width 14.8 % (11.5-14.5); Red Blood Cell (RBC) Count 3.02 mill/uL (4.20-5.40); White Blood Cell (WBC) Count 9.3 10x3/uL (4.8-10.8)
[2022-11-10 07:34] LABS: ALT (SGPT) 16 U/L (8-55); AST (SGOT) 21 U/L (5-34); Albumin 2.6 g/dL (3.4-4.8); Alkaline Phosphatase 96 U/L (40-110); Anion Gap 12 mmol/L (10-20); BUN (Urea Nitrogen) 22 mg/dL (9.8-20.1); Bilirubin, Total 0.4 mg/dL (0.2-1.2); Calc. Creatinine Clearance 56 mL/min (70-130); Calcium 9.7 mg/dL (7.8-10.44); Carbon Dioxide 24 mmol/L (23-31); Chloride 103 mmol/L (98-107); Estimated GFR 65; Globulin 2.8 g/dL (2.4-3.5); Glucose 124 mg/dL (83-110); Potassium 4.1 mmol/L (3.5-5.1); Protein, Total 5.4 g/dL (5.8-8.1); Sodium 135 mmol/L (136-145); Uric Acid 3.6 mg/dL (2.6-6.0)
[2022-11-10] MEDS ORDERED: predniSONE 50 MG TAB PO SCH (08:00)
[2022-11-10] MEDS: Allopurinol 300 MG TAB PO SCH (08:56)
[2022-11-10] MEDS: Aspirin 81 mg Enteric Coated Tablet PO SCH (08:56)
[2022-11-10] MEDS: Losartan 25 MG TAB PO SCH (08:57)
[2022-11-10] MEDS: Multivit, Therapeutic 1 TAB PO SCH (08:57)
[2022-11-10] MEDS: Calcium Carbonate 600 MG + Vit D TAB PO SCH ×2 (08:57→21:29)
[2022-11-10] MEDS: Nicotine 21 MG PATCH TD SCH (13:21)
[2022-11-10] MEDS: HYDROcodone/Acetaminophen 5/325 mg Tablet PO PRN ×2 (13:22→20:24)
[2022-11-10] MEDS ORDERED: PEGFILGRASTIM-JMDB 6 MG/0.6 ML SYRINGE SQ SCH ×2 (18:00)
[2022-11-10 20:21] VITALS: BP 165/80; TEMP 97.7
[2022-11-10] MEDS: Rosuvastatin 5 MG TAB PO SCH (21:29)
[2022-11-10] MEDS: Escitalopram Oxalate 10 mg Tablet PO SCH (21:29)
== END 2022-11-10 20:35 | DRG 823 ==
LOC: MSONC 14:23 → IMCU/EMU 10-27 16:09 → SURG A 10-29 15:10
PROVIDERS: ADMIT Internal Medicine; ATTEND Internal Medicine
PROC: 0QB90ZX Excision of Left Femoral Shaft, Open Approach, Diagnostic (ICD-10-PCS; 2022-10-27)
PROC: 0QS904Z Reposition Left Femoral Shaft with Internal Fixation Device, Open Approach (ICD-10-PCS; 2022-10-27)
PROC: 0QS804Z Reposition Right Femoral Shaft with Internal Fixation Device, Open Approach (ICD-10-PCS; 2022-10-27)
PROC: 5A09357 Assistance with Respiratory Ventilation, Less than 24 Consecutive Hours, Continuous Positive Airway Pressure (ICD-10-PCS; 2022-10-27)
PROC: 30233N1 Transfusion of Nonautologous Red Blood Cells into Peripheral Vein, Percutaneous Approach (ICD-10-PCS; 2022-10-28)
PROC: 0JH60WZ Insertion of Totally Implantable Vascular Access Device into Chest Subcutaneous Tissue and Fascia, Open Approach (ICD-10-PCS; 2022-11-08)
PROC: 02HV33Z Insertion of Infusion Device into Superior Vena Cava, Percutaneous Approach (ICD-10-PCS; 2022-11-08)
PROC: B5181ZA Fluoroscopy of Superior Vena Cava using Low Osmolar Contrast, Guidance (ICD-10-PCS; 2022-11-08)
PROC: 3E0430M Introduction of Antineoplastic, Monoclonal Antibody, into Central Vein, Percutaneous Approach (ICD-10-PCS; principal; 2022-11-09)
PROC: 3E04305 Introduction of Other Antineoplastic into Central Vein, Percutaneous Approach (ICD-10-PCS; 2022-11-09)
DX: C83.35 Diffuse large B-cell lymphoma, lymph nodes of inguinal region and lower limb (principal); Z20.822 Contact with and (suspected) exposure to COVID-19; Z66 Do not resuscitate; Z51.5 Encounter for palliative care; J95.821 Acute postprocedural respiratory failure; M84.552A Pathological fracture in neoplastic disease, left femur, initial encounter for fracture; J98.11 Atelectasis; E87.20 Acidosis, unspecified; J44.1 Chronic obstructive pulmonary disease with (acute) exacerbation; N17.9 Acute kidney failure, unspecified; D62 Acute posthemorrhagic anemia; C79.51 Secondary malignant neoplasm of bone; M84.551A Pathological fracture in neoplastic disease, right femur, initial encounter for fracture; E03.9 Hypothyroidism, unspecified; E78.5 Hyperlipidemia, unspecified; N18.9 Chronic kidney disease, unspecified; I12.9 Hypertensive chronic kidney disease with stage 1 through stage 4 chronic kidney disease, or unspecified chronic kidney disease; I08.1 Rheumatic disorders of both mitral and tricuspid valves; Z88.2 Allergy status to sulfonamides; Z79.82 Long term (current) use of aspirin; Z79.890 Hormone replacement therapy; Z79.52 Long term (current) use of systemic steroids; Z90.710 Acquired absence of both cervix and uterus; Z98.890 Other specified postprocedural states; Z80.3 Family history of malignant neoplasm of breast; Z80.8 Family history of malignant neoplasm of other organs or systems
CPT/HCPCS: 36415; 36416; 36430; 36600; 71045; 71046; 71260; 74177; 78306; 78451; 80048; 80053; 80076; 80202; 82565; 82805; 83605; 83615; 83735; 83930; 83935; 84300; 84550; 85025; 86704; 86706; 86803; 86850; 86900; 86901; 87040; 87340; 87811; 88305; 88307; 88325; 88341; 88342; 88360; 88365; 93005; 93010; 93306; 93970; 94660; A9503; A9540; A9579; C1713; C1788; J1100; J1200; J1642; J1650; J1885; J2001; J2405; J2469; J2543; J2704; J3010; J3370; J3370-JW; J3490; J7030; J7050; J7120; J7512; J7620; J9000; J9070; J9370; P9016; P9045; P9047; Q5108; Q5115; Q9967; U0002

== ENCOUNTER 2022-11-30 18:42 | Inpatient (IN) | payer MEDICARE ==
[2022-11-30] MEDS ORDERED: Acetaminophen 500 MG TAB ONE (19:34)
[2022-11-30 19:43] LABS: Hemoglobin 9.1 g/dL (12.0-16.0); Mean Corpuscular HGB CONC 32.1 g/dL (32.0-36.0); Mean Corpuscular Hemoglobin 30.1 pg (27.0-31.0); Mean Corpuscular Volume 93.9 fl (78.0-98.0); Mean Platelet Volume 7.4 fL (7.4-10.4); Platelet Count 183 10x3/uL (130-400); RBC Distribution Width 19.1 % (11.5-14.5); Red Blood Cell (RBC) Count 3.03 mill/uL (4.20-5.40)
[2022-11-30] MEDS ORDERED: Vancomycin 1.5 GRAM/300 ML BAG 1.5 GM in Premix Bag 1 BAG IVPB SCH (19:45)
[2022-11-30 19:53] LABS: CK (CPK) 14 U/L (29-168); Phosphorus 3.4 mg/dL (2.3-4.7)
[2022-11-30 20:00] LABS: ALT (SGPT) 13 U/L (8-55); AST (SGOT) 14 U/L (5-34); Albumin 3.1 g/dL (3.4-4.8); Alkaline Phosphatase 98 U/L (40-110); Anion Gap 13 mmol/L (10-20); BUN (Urea Nitrogen) 34 mg/dL (9.8-20.1); Bilirubin, Total 0.5 mg/dL (0.2-1.2); Calc. Creatinine Clearance 0 mL/min (70-130); Calcium 8.6 mg/dL (7.8-10.44); Carbon Dioxide 21 mmol/L (23-31); Chloride 100 mmol/L (98-107); Estimated GFR 41; Globulin 2.4 g/dL (2.4-3.5); Glucose 213 mg/dL (83-110); Magnesium 1.7 mg/dL (1.6-2.6); Potassium 4.2 mmol/L (3.5-5.1); Protein, Total 5.5 g/dL (5.8-8.1); Sodium 130 mmol/L (136-145)
[2022-11-30 20:08] LABS: Anisocytosis MODERATE=16-30 cells (100X) (0-5/hpf); Band 3 % (5-11); Burr Cells SLIGHT = 2-5 cells (100X) (0-1/hpf); Lymphocytes 2 % (21-51); MDiff Complete? YES; Neutrophil 95 % (42-75); Nucleated RBC 1 % (0); Platelet Morphology Comment Appears Adequate; White Blood Cell (WBC) Count 24.8 10x3/uL (4.8-10.8)
[2022-12-01] MEDS ORDERED: Acetaminophen 650 MG Suppository PR PRN (02:02)
[2022-12-01] MEDS ORDERED: Ondansetron PF 4 MG/2 ML Vial IVP PRN (02:02)
[2022-12-01] MEDS ORDERED: Ondansetron ODT 4 MG TAB PO PRN (02:02)
[2022-12-01 02:08] LABS: SARS-CoV-2 NAA Rapid Test Not Detected (NotDetected)
[2022-12-01 02:31] VITALS: BMI 32.9
[2022-12-01] MEDS ORDERED: Piperacillin/Tazobactam 3.375 GM VIAL ONE ×2 (03:23→12:15)
[2022-12-01] MEDS ORDERED: Vancomycin Dose by Levels Sliding Scale (Wt 71-99) FS SCH (03:30)
[2022-12-01] MEDS: Piperacillin/Tazobactam 3.375 GM in Sodium Chloride 0.9% 100 ML IVPB SCH ×3 (03:59→20:34)
[2022-12-01 04:11] LABS: #Eosinphils 0.1 thou/uL (0.0-0.7); #Lymphocytes 0.5 thou/uL (1.20-3.40); #Monocytes 0.4 thou/uL (0.11-0.59); #Neutrophils 17.1 thou/uL (1.40-6.50); %Eosinophils 0.4 % (0.0-10.0); %Lymphocytes 2.8 % (21.0-51.0); %Neutrophils 94.8 % (42.0-75.0); Hemoglobin 8.3 g/dL (12.0-16.0); Mean Corpuscular HGB CONC 31.2 g/dL (32.0-36.0); Mean Corpuscular Hemoglobin 29.8 pg (27.0-31.0); Mean Corpuscular Volume 95.3 fl (78.0-98.0); Mean Platelet Volume 6.9 fL (7.4-10.4); Platelet Count 164 10x3/uL (130-400); Red Blood Cell (RBC) Count 2.78 mill/uL (4.20-5.40); White Blood Cell (WBC) Count 18.1 10x3/uL (4.8-10.8)
[2022-12-01 04:31] LABS: Anion Gap 13 mmol/L (10-20); BUN (Urea Nitrogen) 30 mg/dL (9.8-20.1); Calc. Creatinine Clearance 53 mL/min (70-130); Carbon Dioxide 18 mmol/L (23-31); Chloride 107 mmol/L (98-107); Estimated GFR 56; Glucose 129 mg/dL (83-110); Potassium 3.9 mmol/L (3.5-5.1); Sodium 134 mmol/L (136-145)
[2022-12-01 05:18] LABS: Iron 21 ug/dL (50-170); Iron Binding Capacity, Total 176 mcg/dL (265-497)
[2022-12-01] MEDS ORDERED: VANCOMYCIN 1.25 GM/250 ML BAG IVPB SCH (09:00)
[2022-12-01] MEDS ORDERED: Amlodipine 10 MG TAB PO SCH (09:00)
[2022-12-01] MEDS: Escitalopram Oxalate 10 mg Tablet PO SCH (10:11)
[2022-12-01] MEDS: Rosuvastatin 5 MG TAB PO SCH (10:11)
[2022-12-01] MEDS: Levothyroxine Sodium 75 MCG TAB PO SCH (10:11)
[2022-12-01] MEDS: Allopurinol 300 MG TAB PO SCH (10:11)
[2022-12-01 10:44] LABS: Bilirubin Negative (Negative); Blood, Urine Negative (Negative); Clarity Clear (Clear); Glucose, Urine (Dipstick) Normal (Negative); Ketone, Urine Negative (Negative); Leukocyte Negative Leu/uL (Negative); Nitrite Negative (Negative); Protein, Urine (Dipstick) Negative (Neg-Trace); Specific Gravity, Urine 1.023 (1.002-1.036); Urobilinogen Normal mg/dL (Less than 2); pH, Urine 5.5 (5.0-9.0)
[2022-12-01] MEDS ORDERED: Fentanyl 100 MCG/2 ML VIAL ONE (13:15)
[2022-12-01] MEDS ORDERED: Sodium Bicarbonate 2.5 MEQ/5 ML VIAL ONE (13:15)
[2022-12-01] MEDS ORDERED: Iopamidol-370 76% 500 ML 1 ML ONE (13:42)
[2022-12-01 17:25] LABS: Body Fluid Source Abscess Fluid; Clarity Cloudy/Turbid (Clear); Tube # EDTA
[2022-12-01 17:28] LABS: BF Color Pink
[2022-12-01] MEDS: Acetaminophen 325 MG TAB PO PRN (19:17)
[2022-12-01 19:30] LABS: Bilirubin Negative (Negative); Blood, Urine Negative (Negative); Clarity Clear (Clear); Glucose, Urine (Dipstick) Normal (Negative); Ketone, Urine Negative (Negative); Leukocyte Negative Leu/uL (Negative); Nitrite Negative (Negative); Protein, Urine (Dipstick) 20 mg/dL (Neg-Trace); Urobilinogen Normal mg/dL (Less than 2); pH, Urine 5.5 (5.0-9.0)
[2022-12-01 20:33] LABS: Vancomycin, Random 11.9 ug/mL (See Comment)
[2022-12-01] MEDS: VANCOMYCIN 1.25 GM/250 ML BAG 1.25 GM in Premix Bag 1 BAG IVPB SCH (22:36)
[2022-12-02] MEDS: Piperacillin/Tazobactam 3.375 GM in Sodium Chloride 0.9% 100 ML IVPB SCH ×2 (04:14→17:37)
[2022-12-02 05:09] LABS: #Eosinphils 0.1 thou/uL (0.0-0.7); #Lymphocytes 0.6 thou/uL (1.20-3.40); #Monocytes 0.5 thou/uL (0.11-0.59); #Neutrophils 9.8 thou/uL (1.40-6.50); %Eosinophils 1.3 % (0.0-10.0); %Lymphocytes 5.7 % (21.0-51.0); %Monocytes 4.9 % (0.0-10.0); %Neutrophils 88.1 % (42.0-75.0); Hemoglobin 8.1 g/dL (12.0-16.0); Mean Corpuscular HGB CONC 33.4 g/dL (32.0-36.0); Mean Corpuscular Hemoglobin 31.5 pg (27.0-31.0); Mean Corpuscular Volume 94.3 fl (78.0-98.0); Mean Platelet Volume 6.8 fL (7.4-10.4); Platelet Count 186 10x3/uL (130-400); Red Blood Cell (RBC) Count 2.56 mill/uL (4.20-5.40); White Blood Cell (WBC) Count 11.1 10x3/uL (4.8-10.8)
[2022-12-02 05:31] LABS: Anion Gap 11 mmol/L (10-20); BUN (Urea Nitrogen) 30 mg/dL (9.8-20.1); Calc. Creatinine Clearance 53 mL/min (70-130); Calcium 8.6 mg/dL (7.8-10.44); Carbon Dioxide 23 mmol/L (23-31); Chloride 108 mmol/L (98-107); Estimated GFR 56; Glucose 83 mg/dL (83-110); Sodium 138 mmol/L (136-145)
[2022-12-02] MEDS: Levothyroxine Sodium 75 MCG TAB PO SCH (06:42)
[2022-12-02] MEDS: Allopurinol 300 MG TAB PO SCH (09:23)
[2022-12-02] MEDS: Rosuvastatin 5 MG TAB PO SCH (09:24)
[2022-12-02] MEDS: Escitalopram Oxalate 10 mg Tablet PO SCH (09:25)
[2022-12-02] MEDS: HYDROcodone/Acetaminophen 5/325 mg Tablet PO PRN (23:01)
[2022-12-02] MEDS: VANCOMYCIN 1.25 GM/250 ML BAG 1.25 GM in Premix Bag 1 BAG IVPB SCH (23:02)
[2022-12-03] MEDS: Piperacillin/Tazobactam 3.375 GM in Sodium Chloride 0.9% 100 ML IVPB SCH ×3 (01:47→17:43)
[2022-12-03 05:39] LABS: Anion Gap 9 mmol/L (10-20); BUN (Urea Nitrogen) 26 mg/dL (9.8-20.1); Calc. Creatinine Clearance 50 mL/min (70-130); Calcium 8.5 mg/dL (7.8-10.44); Carbon Dioxide 26 mmol/L (23-31); Chloride 107 mmol/L (98-107); Estimated GFR 52; Glucose 92 mg/dL (83-110); Potassium 3.8 mmol/L (3.5-5.1); Sodium 138 mmol/L (136-145)
[2022-12-03 06:01] LABS: #Eosinphils 0.1 thou/uL (0.0-0.7); #Lymphocytes 0.8 thou/uL (1.20-3.40); #Monocytes 0.5 thou/uL (0.11-0.59); #Neutrophils 8.3 thou/uL (1.40-6.50); %Basophils 0.1 % (0.0-1.0); %Eosinophils 1.1 % (0.0-10.0); %Lymphocytes 8.3 % (21.0-51.0); %Monocytes 4.8 % (0.0-10.0); %Neutrophils 85.8 % (42.0-75.0); Anisocytosis SLIGHT = 6-15 cells (100X) (0-5/hpf); Band 8 % (5-11); Hemoglobin 7.5 g/dL (12.0-16.0); Lymphocytes 10 % (21-51); MDiff Complete? YES; Mean Corpuscular HGB CONC 32.9 g/dL (32.0-36.0); Mean Corpuscular Hemoglobin 30.8 pg (27.0-31.0); Mean Corpuscular Volume 93.9 fl (78.0-98.0); Mean Platelet Volume 7.4 fL (7.4-10.4); Monocytes 7 % (0-10); Neutrophil 75 % (42-75); Platelet Count 163 10x3/uL (130-400); Platelet Morphology Comment Appears Adequate; RBC Distribution Width 19.2 % (11.5-14.5); Red Blood Cell (RBC) Count 2.42 mill/uL (4.20-5.40); White Blood Cell (WBC) Count 9.7 10x3/uL (4.8-10.8)
[2022-12-03] MEDS: Levothyroxine Sodium 75 MCG TAB PO SCH (06:20)
[2022-12-03] MEDS: Allopurinol 300 MG TAB PO SCH (07:50)
[2022-12-03] MEDS: Rosuvastatin 5 MG TAB PO SCH (07:50)
[2022-12-03] MEDS ORDERED: CEFAZOLIN 2 GM VIAL ONE (08:33)
[2022-12-03] MEDS ORDERED: Vancomycin 1 GM VIAL ONE (08:37)
[2022-12-03] MEDS ORDERED: Tobramycin Sulfate 1.2 GM VIAL ONE (08:37)
[2022-12-03] MEDS ORDERED: SUGAMMADEX SODIUM 200 MG/2 ML VIAL ONE (09:33)
[2022-12-03] MEDS ORDERED: PHENYLEPHRINE-NS 100 MCG/ML 10 ML SYRINGE ONE ×2 (09:55→10:01)
[2022-12-03] MEDS ORDERED: Rocuronium Bromide 10 MG/ML (10ML VIAL) ONE (09:55)
[2022-12-03] MEDS ORDERED: PROPOFOL 200 MG/20 ML VIAL ONE (09:55)
[2022-12-03] MEDS ORDERED: Lidocaine 1% PF 5 ML VIAL ONE (09:55)
[2022-12-03] MEDS ORDERED: Ondansetron PF 4 MG/2 ML Vial ONE (09:55)
[2022-12-03] MEDS ORDERED: Promethazine HCl 25 MG/ML VIAL IM PRN (11:02)
[2022-12-03] MEDS ORDERED: Ondansetron HCl/PF 4 MG/2 ML Vial IVP PRN (11:02)
[2022-12-03] MEDS ORDERED: Fentanyl 100 MCG/2 ML VIAL ONE (11:21)
[2022-12-03] MEDS: Escitalopram Oxalate 10 mg Tablet PO SCH (13:00)
[2022-12-03] MEDS: HYDROcodone/Acetaminophen 5/325 mg Tablet PO PRN ×2 (15:09→20:36)
[2022-12-04] MEDS: Piperacillin/Tazobactam 3.375 GM in Sodium Chloride 0.9% 100 ML IVPB SCH ×3 (01:59→18:12)
[2022-12-04] MEDS: Levothyroxine Sodium 75 MCG TAB PO SCH (06:09)
[2022-12-04] MEDS: HYDROcodone/Acetaminophen 5/325 mg Tablet PO PRN ×2 (06:09→18:18)
[2022-12-04] MEDS ORDERED: FLU VACC QS2022-23(65YR UP)/PF 240 MCG/0.7 ML SYRINGE IM ONE (09:00)
[2022-12-04] MEDS: Allopurinol 300 MG TAB PO SCH (09:03)
[2022-12-04] MEDS: Escitalopram Oxalate 10 mg Tablet PO SCH (09:03)
[2022-12-04] MEDS: Rosuvastatin 5 MG TAB PO SCH (09:03)
[2022-12-04 13:27] LABS: #Eosinphils 0.2 thou/uL (0.0-0.7); #Lymphocytes 0.9 thou/uL (1.20-3.40); #Monocytes 0.4 thou/uL (0.11-0.59); #Neutrophils 9.1 thou/uL (1.40-6.50); %Basophils 0.1 % (0.0-1.0); %Eosinophils 1.8 % (0.0-10.0); %Lymphocytes 8.2 % (21.0-51.0); %Monocytes 4.2 % (0.0-10.0); %Neutrophils 85.7 % (42.0-75.0); Hemoglobin 6.9 g/dL (12.0-16.0); Mean Corpuscular HGB CONC 32.9 g/dL (32.0-36.0); Mean Corpuscular Hemoglobin 30.8 pg (27.0-31.0); Mean Corpuscular Volume 93.7 fl (78.0-98.0); Mean Platelet Volume 6.9 fL (7.4-10.4); Platelet Count 190 10x3/uL (130-400); Red Blood Cell (RBC) Count 2.22 mill/uL (4.20-5.40); White Blood Cell (WBC) Count 10.6 10x3/uL (4.8-10.8)
[2022-12-04 23:32] LABS: Magnesium 1.7 mg/dL (1.6-2.6)
[2022-12-04] MEDS ORDERED: SODIUM CHLORIDE 0.9% IVPB SCH (23:45)
[2022-12-04] MEDS ORDERED: Magnesium 2 GM/50 ML(in water) 2 GM in Premix Bag 1 BAG IVPB SCH (23:45)
[2022-12-04] MEDS ORDERED: MAGNESIUM SULFATE IVPB SCH (23:45)
[2022-12-05] MEDS: Piperacillin/Tazobactam 3.375 GM in Sodium Chloride 0.9% 100 ML IVPB SCH ×3 (02:57→17:02)
[2022-12-05] MEDS: Levothyroxine Sodium 75 MCG TAB PO SCH (05:24)
[2022-12-05 08:57] LABS: #Eosinphils 0.3 thou/uL (0.0-0.7); #Lymphocytes 0.5 thou/uL (1.20-3.40); #Monocytes 0.4 thou/uL (0.11-0.59); #Neutrophils 9.1 thou/uL (1.40-6.50); %Basophils 0.2 % (0.0-1.0); %Lymphocytes 5.2 % (21.0-51.0); %Monocytes 3.3 % (0.0-10.0); %Neutrophils 88.3 % (42.0-75.0); Hemoglobin 7.6 g/dL (12.0-16.0); Mean Corpuscular HGB CONC 32.7 g/dL (32.0-36.0); Mean Corpuscular Hemoglobin 30.3 pg (27.0-31.0); Mean Corpuscular Volume 92.9 fl (78.0-98.0); Mean Platelet Volume 6.9 fL (7.4-10.4); Platelet Count 197 10x3/uL (130-400); RBC Distribution Width 17.8 % (11.5-14.5); Red Blood Cell (RBC) Count 2.52 mill/uL (4.20-5.40); White Blood Cell (WBC) Count 10.3 10x3/uL (4.8-10.8)
[2022-12-05 09:18] LABS: Anion Gap 11 mmol/L (10-20); BUN (Urea Nitrogen) 29 mg/dL (9.8-20.1); Calc. Creatinine Clearance 40 mL/min (70-130); Calcium 8.4 mg/dL (7.8-10.44); Carbon Dioxide 21 mmol/L (23-31); Chloride 102 mmol/L (98-107); Estimated GFR 39; Glucose 150 mg/dL (83-110); Sodium 130 mmol/L (136-145)
[2022-12-05] MEDS: Escitalopram Oxalate 10 mg Tablet PO SCH (09:58)
[2022-12-05] MEDS: Allopurinol 300 MG TAB PO SCH (09:58)
[2022-12-05] MEDS ORDERED: Polyethylene Glycol 3350 17 GM Packet PO PRN (17:37)
[2022-12-05] MEDS ORDERED: Senokot 8.6 MG TAB PO PRN (17:37)
[2022-12-05] MEDS ORDERED: Senokot 8.6 MG TAB PO SCH (17:45)
[2022-12-05] MEDS: Rosuvastatin 5 MG TAB PO SCH (21:06)
[2022-12-05] MEDS: Metoprolol Tartrate 25 MG TAB PO SCH (21:06)
[2022-12-05] MEDS: HYDROcodone/Acetaminophen 5/325 mg Tablet PO PRN (21:10)
[2022-12-06] MEDS: Piperacillin/Tazobactam 3.375 GM in Sodium Chloride 0.9% 100 ML IVPB SCH ×3 (02:33→17:46)
[2022-12-06] MEDS: Levothyroxine Sodium 75 MCG TAB PO SCH (05:54)
[2022-12-06] MEDS: Escitalopram Oxalate 10 mg Tablet PO SCH (09:54)
[2022-12-06] MEDS: Allopurinol 300 MG TAB PO SCH (09:54)
[2022-12-06] MEDS: Metoprolol Tartrate 25 MG TAB PO SCH ×2 (09:54→22:09)
[2022-12-06] MEDS: Rosuvastatin 5 MG TAB PO SCH (22:09)
[2022-12-06] MEDS: Cefepime 1 GM in Sodium Chloride 0.9% 100 ML IVPB SCH (23:02)
[2022-12-07] MEDS: Piperacillin/Tazobactam 3.375 GM in Sodium Chloride 0.9% 100 ML IVPB SCH ×3 (01:33→17:45)
[2022-12-07] MEDS: Acetaminophen 325 MG TAB PO PRN (02:20)
[2022-12-07] MEDS: Levothyroxine Sodium 75 MCG TAB PO SCH (04:51)
[2022-12-07 04:58] LABS: #Eosinphils 0.2 thou/uL (0.0-0.7); #Lymphocytes 0.6 thou/uL (1.20-3.40); #Monocytes 0.4 thou/uL (0.11-0.59); %Basophils 0.7 % (0.0-1.0); %Eosinophils 3.6 % (0.0-10.0); %Lymphocytes 9.4 % (21.0-51.0); %Monocytes 5.8 % (0.0-10.0); %Neutrophils 80.5 % (42.0-75.0); Hemoglobin 7.3 g/dL (12.0-16.0); Mean Corpuscular Hemoglobin 31.5 pg (27.0-31.0); Mean Corpuscular Volume 92.6 fl (78.0-98.0); Mean Platelet Volume 6.4 fL (7.4-10.4); Platelet Count 225 10x3/uL (130-400); RBC Distribution Width 17.8 % (11.5-14.5); Red Blood Cell (RBC) Count 2.32 mill/uL (4.20-5.40); White Blood Cell (WBC) Count 6.2 10x3/uL (4.8-10.8)
[2022-12-07 05:25] LABS: Anion Gap 9 mmol/L (10-20); BUN (Urea Nitrogen) 19 mg/dL (9.8-20.1); Calc. Creatinine Clearance 43 mL/min (70-130); Calcium 8.2 mg/dL (7.8-10.44); Carbon Dioxide 23 mmol/L (23-31); Chloride 104 mmol/L (98-107); Estimated GFR 44; Glucose 91 mg/dL (83-110); Potassium 3.9 mmol/L (3.5-5.1); Sodium 132 mmol/L (136-145)
[2022-12-07] MEDS: Metoprolol Tartrate 25 MG TAB PO SCH ×2 (05:47→21:31)
[2022-12-07] MEDS: Cefepime 1 GM in Sodium Chloride 0.9% 100 ML IVPB SCH ×2 (09:54→23:06)
[2022-12-07] MEDS: Allopurinol 300 MG TAB PO SCH (09:54)
[2022-12-07] MEDS: Escitalopram Oxalate 10 mg Tablet PO SCH (09:54)
[2022-12-07] MEDS ORDERED: Fentanyl 250 MCG/5 ML VIAL ONE (12:24)
[2022-12-07] MEDS ORDERED: Dexmedetomidine 200 MCG/2 ML VIAL ONE (12:24)
[2022-12-07] MEDS ORDERED: Dexamethasone 20 MG/5 ML VIAL ONE (13:26)
[2022-12-07] MEDS ORDERED: ePHEDrine 50 MG/ML VIAL ONE (13:26)
[2022-12-07] MEDS ORDERED: PROPOFOL 200 MG/20 ML VIAL ONE (13:26)
[2022-12-07] MEDS ORDERED: Ondansetron PF 4 MG/2 ML Vial ONE (13:26)
[2022-12-07] MEDS ORDERED: Glycopyrrolate 0.2 MG/ML 5 ML SYRINGE ONE (13:26)
[2022-12-07] MEDS ORDERED: NEOSTIGMINE 3 MG/3 ML SYR 3 MG/3 ML SYRINGE ONE (13:26)
[2022-12-07] MEDS ORDERED: Rocuronium Bromide 10 MG/ML (10ML VIAL) ONE (13:26)
[2022-12-07] MEDS ORDERED: Tobramycin Sulfate 1.2 GM VIAL ONE (13:33)
[2022-12-07] MEDS ORDERED: Mineral Oil Sterile 10 ML VIAL ONE (13:33)
[2022-12-07] MEDS ORDERED: Vancomycin 1 GM VIAL ONE (13:33)
[2022-12-07] MEDS ORDERED: Promethazine HCl 25 MG/ML VIAL IM PRN (15:58)
[2022-12-07] MEDS ORDERED: Ondansetron HCl/PF 4 MG/2 ML Vial IVP PRN (15:58)
[2022-12-07] MEDS ORDERED: fentaNYL PF 100 MCG/2 ML SYRINGE ONE (16:12)
[2022-12-07] MEDS: HYDROcodone/Acetaminophen 5/325 mg Tablet PO PRN ×2 (17:54→23:06)
[2022-12-07] MEDS: Rosuvastatin 5 MG TAB PO SCH (21:32)
[2022-12-08] MEDS: Piperacillin/Tazobactam 3.375 GM in Sodium Chloride 0.9% 100 ML IVPB SCH ×2 (03:55→09:50)
[2022-12-08 04:18] LABS: #Eosinphils 0.1 thou/uL (0.0-0.7); #Lymphocytes 0.5 thou/uL (1.20-3.40); #Monocytes 0.4 thou/uL (0.11-0.59); #Neutrophils 11.1 thou/uL (1.40-6.50); %Basophils 0.1 % (0.0-1.0); %Eosinophils 0.6 % (0.0-10.0); %Lymphocytes 3.8 % (21.0-51.0); %Monocytes 3.2 % (0.0-10.0); %Neutrophils 92.3 % (42.0-75.0); Hemoglobin 7.7 g/dL (12.0-16.0); Mean Corpuscular HGB CONC 32.6 g/dL (32.0-36.0); Mean Corpuscular Hemoglobin 30.6 pg (27.0-31.0); Mean Corpuscular Volume 93.8 fl (78.0-98.0); Mean Platelet Volume 6.8 fL (7.4-10.4); Platelet Count 254 10x3/uL (130-400); Red Blood Cell (RBC) Count 2.53 mill/uL (4.20-5.40); White Blood Cell (WBC) Count 12.1 10x3/uL (4.8-10.8)
[2022-12-08] MEDS: Levothyroxine Sodium 75 MCG TAB PO SCH (06:03)
[2022-12-08 07:24] LABS: Chloride 102 mmol/L (98-107); Potassium 4.2 mmol/L (3.5-5.1); Sodium 131 mmol/L (136-145)
[2022-12-08 07:25] LABS: Calcium 8.5 mg/dL (7.8-10.44); Glucose 154 mg/dL (83-110)
[2022-12-08 07:26] LABS: Anion Gap 12 mmol/L (10-20); Carbon Dioxide 21 mmol/L (23-31)
[2022-12-08 07:28] LABS: Calc. Creatinine Clearance 35 mL/min (70-130); Estimated GFR 34
[2022-12-08 07:29] LABS: BUN (Urea Nitrogen) 23 mg/dL (9.8-20.1)
[2022-12-08] MEDS ORDERED: Morphine 2 MG/ML VIAL SLOW IVP PRN (07:49)
[2022-12-08] MEDS: Cefepime 1 GM in Sodium Chloride 0.9% 100 ML IVPB SCH ×2 (09:07→21:28)
[2022-12-08] MEDS: Metoprolol Tartrate 25 MG TAB PO SCH ×2 (09:07→21:27)
[2022-12-08] MEDS: Allopurinol 300 MG TAB PO SCH (09:07)
[2022-12-08] MEDS: Escitalopram Oxalate 10 mg Tablet PO SCH (09:07)
[2022-12-08] MEDS: HYDROcodone/Acetaminophen 5/325 mg Tablet PO PRN (12:07)
[2022-12-08] MEDS: Rosuvastatin 5 MG TAB PO SCH (21:27)
[2022-12-09] MEDS ORDERED: Famotidine 20 MG TAB PO SCH (03:30)
[2022-12-09 03:54] LABS: #Eosinphils 0.2 thou/uL (0.0-0.7); #Lymphocytes 1.1 thou/uL (1.20-3.40); #Monocytes 0.5 thou/uL (0.11-0.59); #Neutrophils 12.5 thou/uL (1.40-6.50); %Basophils 0.2 % (0.0-1.0); %Eosinophils 1.6 % (0.0-10.0); %Lymphocytes 7.5 % (21.0-51.0); %Monocytes 3.7 % (0.0-10.0); %Neutrophils 86.9 % (42.0-75.0); Hemoglobin 6.9 g/dL (12.0-16.0); Mean Corpuscular HGB CONC 33.1 g/dL (32.0-36.0); Mean Corpuscular Hemoglobin 31.3 pg (27.0-31.0); Mean Corpuscular Volume 94.4 fl (78.0-98.0); Mean Platelet Volume 6.4 fL (7.4-10.4); Platelet Count 273 10x3/uL (130-400); RBC Distribution Width 17.8 % (11.5-14.5); Red Blood Cell (RBC) Count 2.21 mill/uL (4.20-5.40); White Blood Cell (WBC) Count 14.4 10x3/uL (4.8-10.8)
[2022-12-09 04:17] LABS: Anion Gap 13 mmol/L (10-20); BUN (Urea Nitrogen) 28 mg/dL (9.8-20.1); Calc. Creatinine Clearance 35 mL/min (70-130); Calcium 8.7 mg/dL (7.8-10.44); Carbon Dioxide 20 mmol/L (23-31); Chloride 100 mmol/L (98-107); Estimated GFR 34; Glucose 108 mg/dL (83-110); Potassium 3.9 mmol/L (3.5-5.1); Sodium 129 mmol/L (136-145)
[2022-12-09] MEDS: Levothyroxine Sodium 75 MCG TAB PO SCH (05:47)
[2022-12-09] MEDS: Escitalopram Oxalate 10 mg Tablet PO SCH (08:49)
[2022-12-09] MEDS: Allopurinol 300 MG TAB PO SCH (08:49)
[2022-12-09] MEDS: Metoprolol Tartrate 25 MG TAB PO SCH ×2 (08:50→20:56)
[2022-12-09] MEDS: Famotidine 20 MG TAB PO SCH ×2 (08:50→20:56)
[2022-12-09] MEDS: Cefepime 1 GM in Sodium Chloride 0.9% 100 ML IVPB SCH ×2 (09:33→22:42)
[2022-12-09] MEDS: HYDROcodone/Acetaminophen 5/325 mg Tablet PO PRN (17:57)
[2022-12-09] MEDS: Rosuvastatin 5 MG TAB PO SCH (20:56)
[2022-12-10] MEDS: Levothyroxine Sodium 75 MCG TAB PO SCH (05:02)
[2022-12-10 05:56] LABS: Anion Gap 11 mmol/L (10-20); BUN (Urea Nitrogen) 29 mg/dL (9.8-20.1); Calc. Creatinine Clearance 43 mL/min (70-130); Calcium 8.4 mg/dL (7.8-10.44); Carbon Dioxide 20 mmol/L (23-31); Chloride 99 mmol/L (98-107); Estimated GFR 44; Glucose 83 mg/dL (83-110); Potassium 3.9 mmol/L (3.5-5.1); Sodium 126 mmol/L (136-145)
[2022-12-10 05:58] LABS: ALT (SGPT) 14 U/L (8-55); AST (SGOT) 16 U/L (5-34); Albumin 2.6 g/dL (3.4-4.8); Alkaline Phosphatase 70 U/L (40-110); Bilirubin, Direct 0.3 mg/dL (0.1-0.3); Bilirubin, Total 0.8 mg/dL (0.2-1.2); Protein, Total 4.7 g/dL (5.8-8.1)
[2022-12-10 05:59] LABS: Hemoglobin 7.8 g/dL (12.0-16.0); Mean Corpuscular HGB CONC 33.2 g/dL (32.0-36.0); Mean Corpuscular Hemoglobin 30.3 pg (27.0-31.0); Mean Corpuscular Volume 91.1 fl (78.0-98.0); Mean Platelet Volume 7.1 fL (7.4-10.4); Platelet Count 255 10x3/uL (130-400); RBC Distribution Width 17.4 % (11.5-14.5); Red Blood Cell (RBC) Count 2.57 mill/uL (4.20-5.40); White Blood Cell (WBC) Count 12.1 10x3/uL (4.8-10.8)
[2022-12-10 06:25] LABS: Band 6 % (5-11); Eosinophils 3 % (0-10); Lymphocytes 7 % (21-51); MDiff Complete? YES; Metamyelocyte 1 % (0-0); Monocytes 5 % (0-10); Myelocyte 2 % (0-0); Neutrophil 76 % (42-75); Nucleated RBC 2 % (0)
[2022-12-10] MEDS: Allopurinol 300 MG TAB PO SCH (09:09)
[2022-12-10] MEDS: Cefepime 1 GM in Sodium Chloride 0.9% 100 ML IVPB SCH ×2 (09:09→20:51)
[2022-12-10] MEDS: Famotidine 20 MG TAB PO SCH ×2 (09:11→20:50)
[2022-12-10] MEDS: Escitalopram Oxalate 10 mg Tablet PO SCH (09:11)
[2022-12-10] MEDS: Metoprolol Tartrate 25 MG TAB PO SCH ×2 (09:11→20:50)
[2022-12-10 11:18] LABS: Free T4 (Free Thyroxine) 0.94 ng/dL (0.70-1.48)
[2022-12-10 15:01] LABS: Thyroid Stimulating Hormone 3.1635 uIU/mL (0.35-4.94)
[2022-12-10] MEDS: Rosuvastatin 5 MG TAB PO SCH (20:51)
[2022-12-10 22:28] LABS: Creatinine, Urine 86.15 mg/dL (47-110); Microalbumin Urine 12.3 mg/dL (0.5-50.0); Microalbumin/Creat Ratio 142.8 mg/g (Less than 30)
[2022-12-11] MEDS: Levothyroxine Sodium 75 MCG TAB PO SCH (05:08)
[2022-12-11 05:56] LABS: Hemoglobin 7.4 g/dL (12.0-16.0); Mean Corpuscular HGB CONC 33.9 g/dL (32.0-36.0); Mean Corpuscular Hemoglobin 31.1 pg (27.0-31.0); Mean Corpuscular Volume 91.5 fl (78.0-98.0); Mean Platelet Volume 6.9 fL (7.4-10.4); Platelet Count 254 10x3/uL (130-400); RBC Distribution Width 17.6 % (11.5-14.5); Red Blood Cell (RBC) Count 2.38 mill/uL (4.20-5.40)
[2022-12-11 06:13] LABS: Anion Gap 11 mmol/L (10-20); BUN (Urea Nitrogen) 25 mg/dL (9.8-20.1); Calc. Creatinine Clearance 50 mL/min (70-130); Calcium 8.8 mg/dL (7.8-10.44); Carbon Dioxide 21 mmol/L (23-31); Chloride 105 mmol/L (98-107); Estimated GFR 52; Glucose 96 mg/dL (83-110); Potassium 3.6 mmol/L (3.5-5.1); Sodium 133 mmol/L (136-145)
[2022-12-11 08:10] LABS: Band 5 % (5-11); Eosinophils 1 % (0-10); Lymphocytes 7 % (21-51); MDiff Complete? YES; Metamyelocyte 3 % (0-0); Monocytes 1 % (0-10); Myelocyte 2 % (0-0); Neutrophil 81 % (42-75); Nucleated RBC 1 % (0); Platelet Morphology Comment Appears Adequate; Polychromasia MODERATE = 3-4 cells (100X) (0-2/hpf)
[2022-12-11] MEDS: Allopurinol 300 MG TAB PO SCH (09:52)
[2022-12-11] MEDS: Cefepime 1 GM in Sodium Chloride 0.9% 100 ML IVPB SCH (09:52)
[2022-12-11] MEDS: Metoprolol Tartrate 25 MG TAB PO SCH ×2 (09:54→20:55)
[2022-12-11] MEDS: Famotidine 20 MG TAB PO SCH (09:54)
[2022-12-11] MEDS: Escitalopram Oxalate 10 mg Tablet PO SCH (09:54)
[2022-12-11 11:35] LABS: Platelet Count 289 10x3/uL (130-400)
[2022-12-11 12:08] LABS: INR-International Normal Ratio 1.1; Prothrombin Time 14.4 sec (12.0-14.7)
[2022-12-11 12:09] LABS: Fibrinogen 623 mg/dL (253-463)
[2022-12-11 12:15] LABS: D-Dimer Test 2.89 *mcg/mL (0.27-0.43)
[2022-12-11 14:29] LABS: Creatinine, Urine 28.43 mg/dL (47-110)
[2022-12-11] MEDS: Rosuvastatin 5 MG TAB PO SCH (20:55)
[2022-12-12] MEDS: Levothyroxine Sodium 75 MCG TAB PO SCH (05:21)
[2022-12-12] MEDS ORDERED: HYDROcodone/Acetaminophen 5/325 mg Tablet PO PRN (08:02)
[2022-12-12] MEDS ORDERED: Iopamidol-370 76% 500 ML 1 ML ONE (09:29)
[2022-12-12] MEDS: Allopurinol 300 MG TAB PO SCH (09:56)
[2022-12-12] MEDS: Metoprolol Tartrate 25 MG TAB PO SCH ×2 (09:56→20:29)
[2022-12-12] MEDS: Famotidine 20 MG TAB PO SCH (09:57)
[2022-12-12] MEDS: Escitalopram Oxalate 10 mg Tablet PO SCH (09:57)
[2022-12-12 10:25] LABS: Chloride 106 mmol/L (98-107); Potassium 3.4 mmol/L (3.5-5.1); Sodium 134 mmol/L (136-145)
[2022-12-12 10:26] LABS: Calcium 8.3 mg/dL (7.8-10.44); Glucose 108 mg/dL (83-110)
[2022-12-12 10:28] LABS: Anion Gap 8 mmol/L (10-20); Carbon Dioxide 23 mmol/L (23-31)
[2022-12-12 10:30] LABS: BUN (Urea Nitrogen) 18 mg/dL (9.8-20.1); Calc. Creatinine Clearance 59 mL/min (70-130); Estimated GFR 64
[2022-12-12] MEDS ORDERED: Potassium Chloride 20 MEQ TAB PO SCH (11:45)
[2022-12-12] MEDS: Sodium Chloride 0.9% 1,000 ML IV SCH (17:03)
[2022-12-12] MEDS: Rosuvastatin 5 MG TAB PO SCH (20:24)
[2022-12-13] MEDS: Levothyroxine Sodium 75 MCG TAB PO SCH (05:08)
[2022-12-13 06:03] LABS: Anion Gap 7 mmol/L (10-20); BUN (Urea Nitrogen) 14 mg/dL (9.8-20.1); Calc. Creatinine Clearance 59 mL/min (70-130); Calcium 8.3 mg/dL (7.8-10.44); Carbon Dioxide 26 mmol/L (23-31); Chloride 107 mmol/L (98-107); Estimated GFR 63; Glucose 95 mg/dL (83-110); Potassium 4.2 mmol/L (3.5-5.1); Sodium 136 mmol/L (136-145)
[2022-12-13] MEDS: Escitalopram Oxalate 10 mg Tablet PO SCH (08:47)
[2022-12-13] MEDS: Famotidine 20 MG TAB PO SCH (08:48)
[2022-12-13] MEDS: Metoprolol Tartrate 25 MG TAB PO SCH ×2 (08:48→20:26)
[2022-12-13] MEDS: Allopurinol 300 MG TAB PO SCH (08:48)
[2022-12-13] MEDS: Sodium Chloride 0.9% 1,000 ML IV SCH (08:49)
[2022-12-13] MEDS ORDERED: Iopamidol 370 76% 100 ML VIAL ONE (08:57)
[2022-12-13] MEDS: Rosuvastatin 5 MG TAB PO SCH (20:26)
[2022-12-14] MEDS: Sodium Chloride 0.9% 1,000 ML IV SCH (03:00)
[2022-12-14] MEDS: Levothyroxine Sodium 75 MCG TAB PO SCH (05:46)
[2022-12-14 06:20] LABS: #Eosinphils 0.2 thou/uL (0.0-0.7); #Lymphocytes 0.8 thou/uL (1.20-3.40); #Monocytes 0.5 thou/uL (0.11-0.59); %Basophils 0.5 % (0.0-1.0); %Eosinophils 3.1 % (0.0-10.0); %Lymphocytes 12.2 % (21.0-51.0); %Monocytes 7.3 % (0.0-10.0); %Neutrophils 76.9 % (42.0-75.0); Hemoglobin 7.6 g/dL (12.0-16.0); Mean Corpuscular HGB CONC 32.6 g/dL (32.0-36.0); Mean Corpuscular Hemoglobin 31.1 pg (27.0-31.0); Mean Corpuscular Volume 95.5 fl (78.0-98.0); Mean Platelet Volume 6.9 fL (7.4-10.4); Platelet Count 248 10x3/uL (130-400); RBC Distribution Width 19.2 % (11.5-14.5); Red Blood Cell (RBC) Count 2.43 mill/uL (4.20-5.40); White Blood Cell (WBC) Count 6.5 10x3/uL (4.8-10.8)
[2022-12-14 06:40] LABS: Anion Gap 10 mmol/L (10-20); BUN (Urea Nitrogen) 13 mg/dL (9.8-20.1); Calc. Creatinine Clearance 60 mL/min (70-130); Calcium 8.5 mg/dL (7.8-10.44); Carbon Dioxide 26 mmol/L (23-31); Chloride 106 mmol/L (98-107); Estimated GFR 65; Glucose 95 mg/dL (83-110); Potassium 3.7 mmol/L (3.5-5.1); Sodium 138 mmol/L (136-145)
[2022-12-14] MEDS: Allopurinol 300 MG TAB PO SCH (09:55)
[2022-12-14] MEDS: Escitalopram Oxalate 10 mg Tablet PO SCH (09:56)
[2022-12-14] MEDS: Famotidine 20 MG TAB PO SCH (09:56)
[2022-12-14] MEDS: Apixaban 5 MG TAB PO SCH ×2 (09:56→20:07)
[2022-12-14] MEDS: Metoprolol Tartrate 25 MG TAB PO SCH ×2 (09:56→20:07)
[2022-12-14] MEDS: Rosuvastatin 5 MG TAB PO SCH (20:07)
[2022-12-15] MEDS: Levothyroxine Sodium 75 MCG TAB PO SCH (04:41)
[2022-12-15 05:05] LABS: #Eosinphils 0.2 thou/uL (0.0-0.7); #Lymphocytes 0.8 thou/uL (1.20-3.40); #Monocytes 0.5 thou/uL (0.11-0.59); #Neutrophils 4.4 thou/uL (1.40-6.50); %Basophils 0.1 % (0.0-1.0); %Eosinophils 2.6 % (0.0-10.0); %Lymphocytes 13.8 % (21.0-51.0); %Monocytes 8.8 % (0.0-10.0); %Neutrophils 74.8 % (42.0-75.0); Hemoglobin 7.7 g/dL (12.0-16.0); Mean Corpuscular HGB CONC 32.5 g/dL (32.0-36.0); Mean Corpuscular Hemoglobin 31.1 pg (27.0-31.0); Mean Corpuscular Volume 95.7 fl (78.0-98.0); Mean Platelet Volume 6.9 fL (7.4-10.4); Platelet Count 252 10x3/uL (130-400); RBC Distribution Width 19.2 % (11.5-14.5); Red Blood Cell (RBC) Count 2.48 mill/uL (4.20-5.40); White Blood Cell (WBC) Count 5.9 10x3/uL (4.8-10.8)
[2022-12-15 05:23] LABS: Anion Gap 11 mmol/L (10-20); BUN (Urea Nitrogen) 11 mg/dL (9.8-20.1); Calc. Creatinine Clearance 64 mL/min (70-130); Calcium 8.6 mg/dL (7.8-10.44); Carbon Dioxide 25 mmol/L (23-31); Chloride 105 mmol/L (98-107); Estimated GFR 70; Glucose 92 mg/dL (83-110); Potassium 3.5 mmol/L (3.5-5.1); Sodium 137 mmol/L (136-145)
[2022-12-15] MEDS: Metoprolol Tartrate 25 MG TAB PO SCH (08:31)
[2022-12-15] MEDS: Allopurinol 300 MG TAB PO SCH (08:31)
[2022-12-15] MEDS: Escitalopram Oxalate 10 mg Tablet PO SCH (08:31)
[2022-12-15] MEDS: Famotidine 20 MG TAB PO SCH (08:31)
[2022-12-15] MEDS: Apixaban 5 MG TAB PO SCH (08:32)
[2022-12-15 11:40] VITALS: BP 149/91; TEMP 97.3
== END 2022-12-15 19:00 | disposition home or self-care (01) | DRG 856 ==
LOC: ERS 18:42 → ERHOLD 21:42 → OBSVTOIN 12-01 02:02 → 2NO 12-01 15:12 → SURG B 12-03 09:01 → MSONC 12-03 12:30 → 2NO 12-05 01:54 → MSONC 12-08 16:04
PROVIDERS: ADMIT Internal Medicine; ATTEND Internal Medicine
PROC: 0Q9 Lower Bones, Drainage (ICD-10-PCS; 2022-12-01)
PROC: 3E04329 Introduction of Other Anti-infective into Central Vein, Percutaneous Approach (ICD-10-PCS; 2022-12-01)
PROC: 0Q9 Lower Bones, Drainage (ICD-10-PCS; principal; 2022-12-03)
PROC: 3E0V329 Introduction of Other Anti-infective into Bones, Percutaneous Approach (ICD-10-PCS; 2022-12-03)
PROC: 30233N1 Transfusion of Nonautologous Red Blood Cells into Peripheral Vein, Percutaneous Approach (ICD-10-PCS; 2022-12-04)
PROC: 0QS904Z Reposition Left Femoral Shaft with Internal Fixation Device, Open Approach (ICD-10-PCS; 2022-12-07)
PROC: 0QP904Z Removal of Internal Fixation Device from Left Femoral Shaft, Open Approach (ICD-10-PCS; 2022-12-07)
DX: T81.42XA Infection following a procedure, deep incisional surgical site, initial encounter (principal); A41.4 Sepsis due to anaerobes; L02.416 Cutaneous abscess of left lower limb; M84.552A Pathological fracture in neoplastic disease, left femur, initial encounter for fracture; L03.116 Cellulitis of left lower limb; N17.9 Acute kidney failure, unspecified; C85.95 Non-Hodgkin lymphoma, unspecified, lymph nodes of inguinal region and lower limb; E22.2 Syndrome of inappropriate secretion of antidiuretic hormone; Z20.822 Contact with and (suspected) exposure to COVID-19; E03.9 Hypothyroidism, unspecified; M19.90 Unspecified osteoarthritis, unspecified site; E78.5 Hyperlipidemia, unspecified; M06.9 Rheumatoid arthritis, unspecified; F17.210 Nicotine dependence, cigarettes, uncomplicated; Y83.1 Surgical operation with implant of artificial internal device as the cause of abnormal reaction of the patient, or of later complication, without mention of misadventure at the time of the procedure; D64.9 Anemia, unspecified; T81.44XA Sepsis following a procedure, initial encounter; M81.0 Age-related osteoporosis without current pathological fracture; D35.00 Benign neoplasm of unspecified adrenal gland; E87.6 Hypokalemia; I48.91 Unspecified atrial fibrillation; Z88.2 Allergy status to sulfonamides; Z79.899 Other long term (current) drug therapy; Z79.890 Hormone replacement therapy; Z90.710 Acquired absence of both cervix and uterus
CPT/HCPCS: 36415; 36430; 71045; 71260; 71275; 74170; 74177; 76770; 77002; 80048; 80053; 80076; 80202; 81003; 82043; 82533; 82550; 82570; 82728; 83010; 83540; 83550; 83605; 83615; 83735; 83930; 83935; 84100; 84156; 84300; 84439; 84443; 84484; 84550; 85025; 85049; 85060; 85300; 85362; 85379; 85384; 85610; 85652; 85730; 86140; 86850; 86900; 86901; 87040; 87070; 87077; 87086; 87186; 87205; 87811; 89051; 93005; 93010; 96374; 96375; C1713; G0378; J0692; J1100; J1642; J1650; J2272; J2405; J2543; J2704; J3010; J3260; J3370; J3475; J3490; J7050; P9016; Q9967; U0002

== ENCOUNTER 2023-01-02 16:42 | Inpatient (IN) | payer MEDICARE ==
[2023-01-02] MEDS ORDERED: Piperacillin/Tazobactam 3.375 GM VIAL ONE (17:22)
[2023-01-02] MEDS ORDERED: Vancomycin 1 GM/200 ML (FROZEN) BAG ONE (17:22)
[2023-01-02 18:06] LABS: Bilirubin Negative (Negative); Blood, Urine Negative (Negative); Clarity Clear (Clear); Glucose, Urine (Dipstick) Normal (Negative); Ketone, Urine Negative (Negative); Leukocyte Negative Leu/uL (Negative); Nitrite Negative (Negative); Protein, Urine (Dipstick) 10 mg/dL (Neg-Trace); Specific Gravity, Urine 1.011 (1.002-1.036); Urobilinogen Normal mg/dL (Less than 2)
[2023-01-02 18:59] LABS: ALT (SGPT) 11 U/L (8-55); AST (SGOT) 48 U/L (5-34); Albumin 3.1 g/dL (3.4-4.8); Alkaline Phosphatase 85 U/L (40-110); Anion Gap 16 mmol/L (10-20); BUN (Urea Nitrogen) 17 mg/dL (9.8-20.1); Bilirubin, Total 0.3 mg/dL (0.2-1.2); CK (CPK) 22 U/L (29-168); Calc. Creatinine Clearance 0 mL/min (70-130); Calcium 8.5 mg/dL (7.8-10.44); Carbon Dioxide 20 mmol/L (23-31); Chloride 108 mmol/L (98-107); Estimated GFR 54; Globulin 2.7 g/dL (2.4-3.5); Glucose 99 mg/dL (83-110); Potassium 5.6 mmol/L (3.5-5.1); Protein, Total 5.8 g/dL (5.8-8.1); Sodium 138 mmol/L (136-145)
[2023-01-02] MEDS ORDERED: Acetaminophen 325 MG TAB PO PRN (21:02)
[2023-01-02] MEDS ORDERED: Ondansetron PF 4 MG/2 ML Vial IVP PRN (21:02)
[2023-01-02] MEDS ORDERED: Ondansetron ODT 4 MG TAB PO PRN (21:02)
[2023-01-02] MEDS ORDERED: HYDROcodone/Acetaminophen 5/325 mg Tablet PO PRN (21:02)
[2023-01-02] MEDS ORDERED: Furosemide 40 MG/4 ML VIAL SLOW IVP SCH (21:15)
[2023-01-02] MEDS ORDERED: Apixaban 5 MG TAB PO SCH (21:30)
[2023-01-02 22:53] VITALS: BMI 36.5
[2023-01-02] MEDS: Cefepime 1 GM in Sodium Chloride 0.9% 100 ML IVPB SCH (23:49)
[2023-01-03 00:19] LABS: Anion Gap 11 mmol/L (10-20); BUN (Urea Nitrogen) 15 mg/dL (9.8-20.1); Calc. Creatinine Clearance 58 mL/min (70-130); Calcium 8.7 mg/dL (7.8-10.44); Carbon Dioxide 26 mmol/L (23-31); Chloride 107 mmol/L (98-107); Estimated GFR 55; Glucose 102 mg/dL (83-110); Potassium 3.7 mmol/L (3.5-5.1); Sodium 140 mmol/L (136-145)
[2023-01-03] MEDS: Levothyroxine Sodium 75 MCG TAB PO SCH (05:28)
[2023-01-03] MEDS: Furosemide 40 MG/4 ML VIAL SLOW IVP SCH ×2 (05:28→14:37)
[2023-01-03 06:51] LABS: #Eosinphils 0.6 thou/uL (0.0-0.7); #Lymphocytes 1.1 thou/uL (1.20-3.40); #Monocytes 0.6 thou/uL (0.11-0.59); #Neutrophils 3.6 thou/uL (1.40-6.50); %Basophils 0.7 % (0.0-1.0); %Eosinophils 10.3 % (0.0-10.0); %Lymphocytes 18.6 % (21.0-51.0); %Monocytes 10.4 % (0.0-10.0); Hemoglobin 9.4 g/dL (12.0-16.0); Mean Corpuscular HGB CONC 33.1 g/dL (32.0-36.0); Mean Corpuscular Hemoglobin 32.2 pg (27.0-31.0); Mean Corpuscular Volume 97.4 fl (78.0-98.0); Platelet Count 200 10x3/uL (130-400); Red Blood Cell (RBC) Count 2.92 mill/uL (4.20-5.40)
[2023-01-03 07:09] LABS: Anion Gap 13 mmol/L (10-20); BUN (Urea Nitrogen) 15 mg/dL (9.8-20.1); Calc. Creatinine Clearance 55 mL/min (70-130); Calcium 9.2 mg/dL (7.8-10.44); Carbon Dioxide 27 mmol/L (23-31); Chloride 104 mmol/L (98-107); Estimated GFR 52; Glucose 95 mg/dL (83-110); Potassium 3.7 mmol/L (3.5-5.1); Sodium 140 mmol/L (136-145)
[2023-01-03] MEDS: Rosuvastatin 5 MG TAB PO SCH (08:21)
[2023-01-03] MEDS: Metoprolol Tartrate 25 MG TAB PO SCH ×2 (08:21→21:19)
[2023-01-03] MEDS: Apixaban 5 MG TAB PO SCH ×2 (08:22→21:19)
[2023-01-03] MEDS: Amlodipine 10 MG TAB PO SCH (08:22)
[2023-01-03] MEDS ORDERED: Allopurinol 300 MG TAB PO SCH (09:00)
[2023-01-03] MEDS ORDERED: Vancomycin 1 GM in Premix Bag 1 BAG IVPB SCH (09:00)
[2023-01-03] MEDS: Cefepime 1 GM in Sodium Chloride 0.9% 100 ML IVPB SCH (11:30)
[2023-01-03] MEDS ORDERED: VANCOMYCIN 1.25 GM/250 ML BAG 1.25 GM in Premix Bag 1 BAG IVPB SCH (14:00)
[2023-01-04] MEDS: Furosemide 40 MG/4 ML VIAL SLOW IVP SCH ×2 (05:10→14:27)
[2023-01-04] MEDS: Levothyroxine Sodium 75 MCG TAB PO SCH (05:10)
[2023-01-04] MEDS: Rosuvastatin 5 MG TAB PO SCH (08:39)
[2023-01-04] MEDS: Metoprolol Tartrate 25 MG TAB PO SCH ×2 (08:40→20:57)
[2023-01-04] MEDS: Amlodipine 10 MG TAB PO SCH (08:40)
[2023-01-04] MEDS: Apixaban 5 MG TAB PO SCH ×2 (08:41→20:57)
[2023-01-04] MEDS ORDERED: Magnevist 469MG/ML 20 ML VIAL ONE (10:13)
[2023-01-05] MEDS: Levothyroxine Sodium 75 MCG TAB PO SCH (05:42)
[2023-01-05] MEDS: Furosemide 40 MG/4 ML VIAL SLOW IVP SCH ×2 (05:42→15:11)
[2023-01-05 05:48] LABS: #Eosinphils 0.7 thou/uL (0.0-0.7); #Lymphocytes 1.7 thou/uL (1.20-3.40); #Monocytes 0.7 thou/uL (0.11-0.59); %Basophils 0.6 % (0.0-1.0); %Lymphocytes 27.2 % (21.0-51.0); %Monocytes 11.6 % (0.0-10.0); %Neutrophils 49.6 % (42.0-75.0); Hemoglobin 9.5 g/dL (12.0-16.0); Mean Corpuscular HGB CONC 33.5 g/dL (32.0-36.0); Mean Corpuscular Hemoglobin 32.6 pg (27.0-31.0); Mean Corpuscular Volume 97.4 fl (78.0-98.0); Mean Platelet Volume 6.6 fL (7.4-10.4); Platelet Count 188 10x3/uL (130-400); RBC Distribution Width 16.6 % (11.5-14.5); Red Blood Cell (RBC) Count 2.92 mill/uL (4.20-5.40); White Blood Cell (WBC) Count 6.1 10x3/uL (4.8-10.8)
[2023-01-05 06:07] LABS: Anion Gap 12 mmol/L (10-20); BUN (Urea Nitrogen) 20 mg/dL (9.8-20.1); Calc. Creatinine Clearance 46 mL/min (70-130); Calcium 9.1 mg/dL (7.8-10.44); Carbon Dioxide 30 mmol/L (23-31); Chloride 99 mmol/L (98-107); Estimated GFR 41; Glucose 96 mg/dL (83-110); Potassium 3.3 mmol/L (3.5-5.1); Sodium 138 mmol/L (136-145)
[2023-01-05 08:55] VITALS: BP 147/68; TEMP 97.7
[2023-01-05] MEDS: Metoprolol Tartrate 25 MG TAB PO SCH (08:56)
[2023-01-05] MEDS: Amlodipine 10 MG TAB PO SCH (08:56)
[2023-01-05] MEDS: Apixaban 5 MG TAB PO SCH (08:56)
[2023-01-05] MEDS: Rosuvastatin 5 MG TAB PO SCH (08:57)
== END 2023-01-05 16:52 | disposition home health service (06) | DRG 602 ==
LOC: ERS 16:42 → T4-B 20:16
PROVIDERS: ADMIT Family Medicine; ATTEND Family Medicine
DX: L03.115 Cellulitis of right lower limb (principal); G92.8 Other toxic encephalopathy; C85.10 Unspecified B-cell lymphoma, unspecified site; G93.49 Other encephalopathy; Z66 Do not resuscitate; L03.116 Cellulitis of left lower limb; Z20.822 Contact with and (suspected) exposure to COVID-19; I48.0 Paroxysmal atrial fibrillation; E03.9 Hypothyroidism, unspecified; E78.5 Hyperlipidemia, unspecified; M19.90 Unspecified osteoarthritis, unspecified site; M06.9 Rheumatoid arthritis, unspecified; F17.210 Nicotine dependence, cigarettes, uncomplicated; E87.5 Hyperkalemia; I12.9 Hypertensive chronic kidney disease with stage 1 through stage 4 chronic kidney disease, or unspecified chronic kidney disease; N18.9 Chronic kidney disease, unspecified; Z88.2 Allergy status to sulfonamides; Z88.8 Allergy status to other drugs, medicaments and biological substances; Z79.890 Hormone replacement therapy; Z79.01 Long term (current) use of anticoagulants; Z79.899 Other long term (current) drug therapy; Z86.711 Personal history of pulmonary embolism; T36.1X5A Adverse effect of cephalosporins and other beta-lactam antibiotics, initial encounter
CPT/HCPCS: 36415; 70450; 70553; 71045; 80048; 80053; 81003; 82550; 83605; 83880; 84484; 85025; 87040; 87086; 93005; 93010; 93970; 96365; 96366; 96367; A9579; J0692; J1940; J1956; J2543; J3370; J3370-JW; J3490

== ENCOUNTER 2023-01-09 21:03 | Inpatient (IN) | payer MEDICARE ==
[2023-01-09] MEDS ORDERED: Ondansetron PF 4 MG/2 ML Vial IVP PRN (23:07)
[2023-01-09] MEDS ORDERED: Ondansetron ODT 4 MG TAB PO PRN (23:07)
[2023-01-09] MEDS ORDERED: Acetaminophen 325 MG TAB PO PRN (23:07)
[2023-01-09] MEDS ORDERED: Apixaban 5 MG TAB PO SCH (23:30)
[2023-01-09] MEDS ORDERED: Metoprolol Tartrate 25 MG TAB PO SCH (23:30)
[2023-01-10 00:31] VITALS: BMI 31.2
[2023-01-10 05:20] LABS: #Eosinphils 0.3 thou/uL (0.0-0.7); #Lymphocytes 1.4 thou/uL (1.20-3.40); #Monocytes 0.6 thou/uL (0.11-0.59); #Neutrophils 4.8 thou/uL (1.40-6.50); %Basophils 0.3 % (0.0-1.0); %Eosinophils 4.3 % (0.0-10.0); %Lymphocytes 19.5 % (21.0-51.0); %Monocytes 8.4 % (0.0-10.0); %Neutrophils 67.6 % (42.0-75.0); Hemoglobin 9.6 g/dL (12.0-16.0); Mean Corpuscular HGB CONC 32.8 g/dL (32.0-36.0); Mean Corpuscular Hemoglobin 31.4 pg (27.0-31.0); Mean Corpuscular Volume 95.9 fl (78.0-98.0); Platelet Count 227 10x3/uL (130-400); RBC Distribution Width 16.1 % (11.5-14.5); Red Blood Cell (RBC) Count 3.05 mill/uL (4.20-5.40); White Blood Cell (WBC) Count 7.1 10x3/uL (4.8-10.8)
[2023-01-10 05:30] LABS: Anion Gap 12 mmol/L (10-20); BUN (Urea Nitrogen) 30 mg/dL (9.8-20.1); Calc. Creatinine Clearance 35 mL/min (70-130); Calcium 9.7 mg/dL (7.8-10.44); Carbon Dioxide 31 mmol/L (23-31); Chloride 100 mmol/L (98-107); Estimated GFR 36; Glucose 92 mg/dL (83-110); Potassium 3.5 mmol/L (3.5-5.1); Sodium 139 mmol/L (136-145)
[2023-01-10] MEDS: Levothyroxine Sodium 75 MCG TAB PO SCH (06:34)
[2023-01-10] MEDS ORDERED: Metoprolol Tartrate 25 MG TAB PO SCH (09:00)
[2023-01-10] MEDS ORDERED: Amlodipine 10 MG TAB PO SCH ×2 (09:00)
[2023-01-10] MEDS ORDERED: FLU VACC QS2022-23(65YR UP)/PF 240 MCG/0.7 ML SYRINGE IM ONE (09:00)
[2023-01-10] MEDS: Rosuvastatin 5 MG TAB PO SCH (10:46)
[2023-01-10] MEDS: Escitalopram Oxalate 10 mg Tablet PO SCH (10:46)
[2023-01-10] MEDS: Metoprolol Tartrate 25 MG TAB PO SCH ×2 (10:47→20:11)
[2023-01-10] MEDS: Apixaban 5 MG TAB PO SCH ×2 (10:47→20:11)
[2023-01-10] MEDS: Furosemide 20 MG TAB PO SCH ×2 (10:47→13:25)
[2023-01-10] MEDS ORDERED: diphenhydrAMINE 12.5 MG/5 ML UDCUP PO SCH (13:30)
[2023-01-10] MEDS ORDERED: Potassium Chloride 20 MEQ TAB PO SCH (17:00)
[2023-01-11 05:01] LABS: #Eosinphils 0.9 thou/uL (0.0-0.7); #Lymphocytes 1.5 thou/uL (1.20-3.40); #Monocytes 0.7 thou/uL (0.11-0.59); #Neutrophils 3.9 thou/uL (1.40-6.50); %Basophils 0.4 % (0.0-1.0); %Eosinophils 12.9 % (0.0-10.0); %Lymphocytes 20.8 % (21.0-51.0); %Monocytes 10.6 % (0.0-10.0); %Neutrophils 55.3 % (42.0-75.0); Hemoglobin 10.1 g/dL (12.0-16.0); Mean Corpuscular HGB CONC 32.2 g/dL (32.0-36.0); Mean Corpuscular HGB CONC 32.6 g/dL (32.0-36.0); Mean Corpuscular Hemoglobin 31.4 pg (27.0-31.0); Mean Corpuscular Hemoglobin 31.6 pg (27.0-31.0); Mean Corpuscular Volume 97.1 fl (78.0-98.0); Mean Corpuscular Volume 97.5 fl (78.0-98.0); Mean Platelet Volume 6.8 fL (7.4-10.4); Mean Platelet Volume 6.9 fL (7.4-10.4); Platelet Count 226 10x3/uL (130-400); Platelet Count 227 10x3/uL (130-400); RBC Distribution Width 15.9 % (11.5-14.5); Red Blood Cell (RBC) Count 3.17 mill/uL (4.20-5.40); Red Blood Cell (RBC) Count 3.21 mill/uL (4.20-5.40); White Blood Cell (WBC) Count 7.5 10x3/uL (4.8-10.8)
[2023-01-11 05:23] LABS: Anion Gap 13 mmol/L (10-20); BUN (Urea Nitrogen) 30 mg/dL (9.8-20.1); Calc. Creatinine Clearance 34 mL/min (70-130); Calcium 9.6 mg/dL (7.8-10.44); Carbon Dioxide 28 mmol/L (23-31); Chloride 102 mmol/L (98-107); Estimated GFR 35; Glucose 95 mg/dL (83-110); Potassium 3.8 mmol/L (3.5-5.1); Sodium 139 mmol/L (136-145)
[2023-01-11] MEDS: Levothyroxine Sodium 75 MCG TAB PO SCH (05:46)
[2023-01-11] MEDS: Apixaban 5 MG TAB PO SCH ×2 (08:13→21:33)
[2023-01-11] MEDS: Metoprolol Tartrate 25 MG TAB PO SCH ×2 (08:13→21:34)
[2023-01-11] MEDS: Rosuvastatin 5 MG TAB PO SCH (08:13)
[2023-01-11] MEDS: Furosemide 20 MG TAB PO SCH ×2 (08:13→15:13)
[2023-01-11] MEDS: Escitalopram Oxalate 10 mg Tablet PO SCH (12:12)
[2023-01-11] MEDS ORDERED: Temazepam 15 MG CAP PO PRN (15:38)
[2023-01-12 04:48] LABS: Anion Gap 13 mmol/L (10-20); BUN (Urea Nitrogen) 29 mg/dL (9.8-20.1); Calc. Creatinine Clearance 35 mL/min (70-130); Calcium 9.3 mg/dL (7.8-10.44); Carbon Dioxide 26 mmol/L (23-31); Chloride 104 mmol/L (98-107); Estimated GFR 37; Glucose 92 mg/dL (83-110); Potassium 3.6 mmol/L (3.5-5.1); Sodium 139 mmol/L (136-145)
[2023-01-12 04:52] LABS: #Eosinphils 0.7 thou/uL (0.0-0.7); #Lymphocytes 1.4 thou/uL (1.20-3.40); #Monocytes 0.6 thou/uL (0.11-0.59); #Neutrophils 2.5 thou/uL (1.40-6.50); %Basophils 0.3 % (0.0-1.0); %Eosinophils 13.7 % (0.0-10.0); %Monocytes 11.4 % (0.0-10.0); %Neutrophils 47.6 % (42.0-75.0); Crenated RBC SLIGHT = 1-5 cells (100X) (None Seen); Eosinophils 15 % (0-10); Hemoglobin 9.7 g/dL (12.0-16.0); Lymphocytes 25 % (21-51); MDiff Complete? YES; Mean Corpuscular HGB CONC 30.7 g/dL (32.0-36.0); Mean Corpuscular Hemoglobin 30.7 pg (27.0-31.0); Mean Platelet Volume 6.9 fL (7.4-10.4); Monocytes 11 % (0-10); Neutrophil 47 % (42-75); Ovalocytes SLIGHT = 2-5 cells (100X) (0-1/hpf); Platelet Count 189 10x3/uL (130-400); Platelet Morphology Comment Appears Adequate; Polychromasia SLIGHT = 2-3 cells (100X) (0-2/hpf); RBC Distribution Width 15.9 % (11.5-14.5); Red Blood Cell (RBC) Count 3.16 mill/uL (4.20-5.40); Schistocytes SLIGHT = 2-5 cells (100X) (0-1/hpf); Tear Drops SLIGHT = 2-5 cells (100X) (0-1/hpf); White Blood Cell (WBC) Count 5.3 10x3/uL (4.8-10.8)
[2023-01-12] MEDS: Levothyroxine Sodium 75 MCG TAB PO SCH (06:14)
[2023-01-12] MEDS: Rosuvastatin 5 MG TAB PO SCH (08:04)
[2023-01-12] MEDS: Furosemide 20 MG TAB PO SCH ×2 (08:05→13:22)
[2023-01-12] MEDS: Metoprolol Tartrate 25 MG TAB PO SCH ×2 (08:05→21:29)
[2023-01-12] MEDS: Apixaban 5 MG TAB PO SCH ×2 (08:05→21:29)
[2023-01-12] MEDS: CO Q-10 CAPSULE 100 MG PO SCH (08:05)
[2023-01-12] MEDS: Escitalopram Oxalate 10 mg Tablet PO SCH (11:52)
[2023-01-13] MEDS: Levothyroxine Sodium 75 MCG TAB PO SCH (06:04)
[2023-01-13 06:08] LABS: Free T4 (Free Thyroxine) 1.16 ng/dL (0.70-1.48); Thyroid Stimulating Hormone 2.5735 uIU/mL (0.35-4.94)
[2023-01-13] MEDS: Apixaban 5 MG TAB PO SCH ×2 (09:04→21:41)
[2023-01-13] MEDS: CO Q-10 CAPSULE 100 MG PO SCH (09:04)
[2023-01-13] MEDS: Rosuvastatin 5 MG TAB PO SCH (09:04)
[2023-01-13] MEDS: Metoprolol Tartrate 25 MG TAB PO SCH ×2 (09:05→21:41)
[2023-01-13] MEDS: Furosemide 20 MG TAB PO SCH ×2 (09:06→13:14)
[2023-01-13] MEDS: Escitalopram Oxalate 10 mg Tablet PO SCH (13:14)
[2023-01-14] MEDS: Levothyroxine Sodium 75 MCG TAB PO SCH (05:33)
[2023-01-14] MEDS: Apixaban 5 MG TAB PO SCH ×2 (08:34→19:53)
[2023-01-14] MEDS: Rosuvastatin 5 MG TAB PO SCH (08:34)
[2023-01-14] MEDS: Furosemide 20 MG TAB PO SCH ×2 (08:34→13:27)
[2023-01-14] MEDS: CO Q-10 CAPSULE 100 MG PO SCH (08:34)
[2023-01-14] MEDS: Metoprolol Tartrate 25 MG TAB PO SCH ×2 (08:36→19:53)
[2023-01-14] MEDS: Escitalopram Oxalate 10 mg Tablet PO SCH (11:32)
[2023-01-15] MEDS: Levothyroxine Sodium 75 MCG TAB PO SCH (05:01)
[2023-01-15] MEDS: CO Q-10 CAPSULE 100 MG PO SCH (08:28)
[2023-01-15] MEDS: Furosemide 20 MG TAB PO SCH ×2 (08:28→14:53)
[2023-01-15] MEDS: Apixaban 5 MG TAB PO SCH ×2 (08:28→20:19)
[2023-01-15] MEDS: Rosuvastatin 5 MG TAB PO SCH (08:28)
[2023-01-15] MEDS: Metoprolol Tartrate 25 MG TAB PO SCH ×2 (10:28→20:19)
[2023-01-15] MEDS: Escitalopram Oxalate 10 mg Tablet PO SCH (11:44)
[2023-01-15] MEDS ORDERED: Amlodipine 10 MG TAB PO SCH (13:45)
[2023-01-16] MEDS: Levothyroxine Sodium 75 MCG TAB PO SCH (05:46)
[2023-01-16] MEDS: Amlodipine 10 MG TAB PO SCH (10:08)
[2023-01-16] MEDS: Furosemide 20 MG TAB PO SCH ×2 (10:08→14:21)
[2023-01-16] MEDS: Apixaban 5 MG TAB PO SCH ×2 (10:10→20:24)
[2023-01-16] MEDS: Rosuvastatin 5 MG TAB PO SCH (10:10)
[2023-01-16] MEDS: Metoprolol Tartrate 25 MG TAB PO SCH ×2 (10:10→20:25)
[2023-01-16] MEDS: CO Q-10 CAPSULE 100 MG PO SCH (10:10)
[2023-01-16] MEDS: Escitalopram Oxalate 10 mg Tablet PO SCH (12:41)
[2023-01-17] MEDS: Levothyroxine Sodium 75 MCG TAB PO SCH (05:28)
[2023-01-17 08:08] VITALS: BP 161/72; TEMP 98.6
[2023-01-17] MEDS: Apixaban 5 MG TAB PO SCH (09:03)
[2023-01-17] MEDS: Metoprolol Tartrate 25 MG TAB PO SCH (09:03)
[2023-01-17] MEDS: CO Q-10 CAPSULE 100 MG PO SCH (09:03)
[2023-01-17] MEDS: Amlodipine 10 MG TAB PO SCH (09:03)
[2023-01-17] MEDS: Rosuvastatin 5 MG TAB PO SCH (09:03)
[2023-01-17] MEDS: Furosemide 20 MG TAB PO SCH (09:03)
== END 2023-01-17 11:34 | disposition home or self-care (01) | DRG 689 ==
LOC: ERS 21:03 → 2NO 23:02 → OBSVTOIN 01-10 11:24 → SURG A 01-13 18:35
PROVIDERS: ADMIT Internal Medicine; ATTEND Internal Medicine
DX: N39.0 Urinary tract infection, site not specified (principal); G93.41 Metabolic encephalopathy; C85.10 Unspecified B-cell lymphoma, unspecified site; N17.9 Acute kidney failure, unspecified; E78.5 Hyperlipidemia, unspecified; E03.9 Hypothyroidism, unspecified; Z86.711 Personal history of pulmonary embolism; Z66 Do not resuscitate; I48.0 Paroxysmal atrial fibrillation; M06.9 Rheumatoid arthritis, unspecified; Z88.2 Allergy status to sulfonamides; Z88.8 Allergy status to other drugs, medicaments and biological substances; Z79.890 Hormone replacement therapy; Z79.899 Other long term (current) drug therapy; F17.210 Nicotine dependence, cigarettes, uncomplicated; N18.32 Chronic kidney disease, stage 3b
CPT/HCPCS: 36415; 80048; 84439; 84443; 84481; 85025; 95816; 95819; 95957; G0378; Q0163

== ENCOUNTER 2023-02-02 10:15 | Outpatient (CLI) | payer MEDICARE | END 2023-02-02 10:16 | LOC: PET 10:15 | PROVIDERS: ATTEND Internal Medicine | DX: C83.35 Diffuse large B-cell lymphoma, lymph nodes of inguinal region and lower limb (principal); M89.9 Disorder of bone, unspecified | CPT/HCPCS: 78815; A9552 ==

== ENCOUNTER 2023-05-25 11:53 | Outpatient (CLI) | payer MEDICARE | END 2023-05-25 11:54 | disposition home or self-care (01) | LOC: SCSMRI 11:53 | PROVIDERS: ATTEND Internal Medicine | DX: C83.35 Diffuse large B-cell lymphoma, lymph nodes of inguinal region and lower limb (principal) | CPT/HCPCS: 72156; 82565 ==